=== PATIENT | male | born 1950 | race Caucasian/White ===

== ENCOUNTER 2018-08-19 13:01 | Inpatient (IN) | payer OTHER ==
[2018-08-19 14:46] LABS: Protime INR 1.3
[2018-08-19 14:57] LABS: ALT/SGPT 37 U/L (12-78); AST/SGOT 16 U/L (15-37); Albumin 3.1 g/dL (3.4-5.0); Alkaline Phosphatase 134 U/L (45-117); BUN Blood Urea Nitrogen 24 mg/dL (7-18); Bicarbonate 27 mmol/L (21-32); Bilirubin Direct 0.2 mg/dL (0-0.2); Bilirubin Total 0.7 mg/dL (0.2-1.0); Glucose Level 179 mg/dL (74-106); Lipase 155 U/L (73-393); Magnesium 2.8 mg/dL (1.8-2.4); NT PRO-BNP 72 pg/mL (<125); Protein, Total 8.8 g/dL (6.4-8.2); Sodium Level 134 mmol/L (136-145); Troponin (Emerg Dept Use Only) < 0.02 ng/mL (0.0-0.045)
[2018-08-19 14:58] LABS: Absolute Lymphocytes (CBC) 0.3 K/uL (0.7-4.9); Absolute Monocytes 1.2 K/uL (0.1-1.3); Absolute Neutrophil 27.5 K/uL (1.8-8.0); Basophils % 1.1 % (0-1.3); Hematocrit 52.4 % (39.6-49.0); Monocytes % 4.1 % (3.3-12.3); RBC Red Blood Cell Count 5.49 M/uL (4.33-5.43)
[2018-08-19] MEDS ORDERED: TOBRAMYCIN SULF 0.3% OPTH OINT ONE (15:09)
--- NOTE | 2018-08-19 15:13 | ER ---
Nurse's Notes [facility] Name: James Wei Age: 68 yrs Sex: Male : 1950 Arrival Date: 08/19/2018 Time: 13:06 Bed 6 Private MD: Bal Vargas Diagnosis: Cellulitis and acute lymphangitis of face-abscess right eye;Fever, unspecified;Unspecified kidney failure;Elevated white blood cell count;Dermatitis, unspecified-CONTACT Presentation: 08/19 13:21 Presenting complaint: Presenting complaint: Patient states: Redness and swelling to ss face x 1 week. Pt reports he was seen and treated for a L eye infection at urgent care, but symptoms have gotten much worse now. 13:21 Acuity: KIRILL 2 ss 13:23 Transition of care: patient was not received from another setting of care. Onset of ss symptoms was August 12, 2018. Risk Assessment: Do you want to hurt yourself or someone else? Patient reports no desire to harm self or others. Initial Sepsis Screen: Does the patient meet any 2 criteria? No. Patient's initial sepsis screen is negative. Does the patient have a suspected source of infection? Yes: Skin breakdown/wound. Care prior to arrival: None. 13:23 Method Of Arrival: Ambulatory ss Historical: - Allergies: 13:26 PENICILLINS; ss - Home Meds: 13:26 losartan 100 mg oral tab 1 tab once daily [Active]; metoprolol tartrate 100 mg Oral tab ss 1 tab once daily [Active]; - PMHx: 13:26 Hypertension; Myocardial infarction; ss - PSHx: 13:26 spinal fusion; ss - Immunization history:: Adult Immunizations up to date. - Social history:: Smoking status: Patient/guardian denies using tobacco. - Ebola Screening: : Patient denies exposure to infectious person Patient denies travel to an Ebola-affected area in the 21 days before illness onset. - Family history:: not pertinent. Screenin:36 Abuse screen: Denies threats or abuse. Denies injuries from another. Nutritional sv screening: No deficits noted. Tuberculosis screening: No symptoms or risk factors identified. Fall Risk None identified. Assessment: 13:40 General: Appears in no apparent distress. uncomfortable, well groomed, well developed, sv Behavior is calm, cooperative, appropriate for age. Pain: Complains of pain in face, right ear and left ear Pain currently is 9 out of 10 on a pain scale. Pain began Jonathan Is continuous. Neuro: Level of Consciousness is awake, alert, obeys commands, Oriented to person, place, time, situation, Moves all extremities. Full function Gait is steady, Speech is normal. Cardiovascular: Patient's skin is warm and dry. Respiratory: Airway is patent Respiratory effort is even, unlabored, Respiratory pattern is regular, symmetrical. EENT: Eyes with exudate noted from right eye Lid(s) right eye is swollen shut. Pt stated it started Monday.. Derm: Skin is pink, warm \T\ dry. Musculoskeletal: Range of motion: intact in all extremities, Swelling present in right eye, right cheek, right ear, nose, left ear and left cheek. 14:00 Reassessment: Patient appears in no apparent distress at this time. No changes from sv previously documented assessment. Patient and/or family updated on plan of care and expected duration. Pain level reassessed. Patient is alert, oriented x 3, equal unlabored respirations, skin warm/dry/pink. 14:50 Reassessment: Warm compress placed on the right eye. sv 15:22 Reassessment: Patient appears in no apparent distress at this time. Patient and/or sv family updated on plan of care and expected duration. Pain level reassessed. Patient is alert, oriented x 3, equal unlabored respirations, skin warm/dry/pink. EENT: Lid(s) swelling to the right and left eye. . 15:45 Reassessment: Patient appears in no apparent distress at this time. Patient and/or sv family updated on plan of care and expected duration. Pain level reassessed. Patient is alert, oriented x 3, equal unlabored respirations, skin warm/dry/pink. Dr Yang at bedside, informed that the swelling to the left eye has increased and to the left side of the face. 16:45 Reassessment: Patient appears in no apparent distress at this time. No changes from sv previously documented assessment. Patient and/or family updated on plan of care and expected duration. Pain level reassessed. Patient is alert, oriented x 3, equal unlabored respirations, skin warm/dry/pink. 17:48 Reassessment: Patient appears in no apparent distress at this time. Patient and/or sv family updated on plan of care and expected duration. Pain level reassessed. Patient is alert, oriented x 3, equal unlabored respirations, skin warm/dry/pink. Vital Signs: 13:26 BP 144 / 86; Pulse 96; Resp 17; Temp 99.9(TE); Pulse Ox 99% on R/A; Weight 104.33 kg; ss Height 6 ft. 2 in. (187.96 cm); Pain 9/10; 14:37 BP 134 / 94; Pulse 93; Resp 18; Pulse Ox 99% ; sv 15:00 BP 158 / 99; Pulse 84; Resp 18; Pulse Ox 98% ; sv 16:00 BP 159 / 95; Pulse 89; Resp 18; Pulse Ox 99% on R/A; sv 17:00 BP 175 / 90; Pulse 90; Resp 89; Pulse Ox 100% on R/A; sv 17:48 BP 164 / 99; Pulse 90; Resp 18; Pulse Ox 99% on R/A; sv 13:26 Body Mass Index 29.53 (104.33 kg, 187.96 cm) Visual Acuity: 13:48 Left Eye Visual acuity 20/20, ; With Lenses; Pt unable to open his right eye sv ED Course: 13:06 Patient arrived in ED. mr 13:07 Bal Vargas is Private Physician. mr 13:21 Triage completed. ss 13:26 Arm band placed on right wrist. ss 13:36 Emily Del Rosario, RN is Primary Nurse. sv 13:36 Awaiting ED provider evaluation. sv 13:36 Patient has correct armband on for positive identification. Bed in low position. Call sv light in reach. Door closed. Head of bed elevated. 13:46 Serg Doll MD is Attending Physician. kaleb 14:00 Initial lab(s) drawn, by de, sent to lab. First set of blood cultures drawn by me. sv Inserted saline lock: 20 gauge in left forearm, using aseptic technique. Blood collected. Flushed left forearm with 5 ml normal saline. 14:15 Second set of blood cultures drawn by de. sv 14:38 X-ray(s) taken. sv 14:54 ED physician to see patient. sv 15:08 XRAY Chest (1 view) In Process Unspecified. EDMS 15:11 Kiet Yang DO is Hospitalizing Provider. kaleb 15:36 CT completed. Patient tolerated procedure well. Patient moved back from CT. bq 15:39 Maxillofacial Wo Con In Process Unspecified. EDMS 17:45 No provider procedures requiring assistance completed. Patient admitted, IV remains in sv place. intact. Administered Medications: 15:10 Drug: NS 0.9% 1000 ml Route: IV; Rate: 1 bolus; Site: left forearm; sv 16:40 Follow up: Response: No adverse reaction; IV Status: Completed infusion; IV Intake: sv 1000ml 15:10 Drug: Zofran 4 mg Route: IVP; Site: left forearm; sv 15:30 Follow up: Response: No adverse reaction sv 15:12 Drug: fentaNYL (PF) 25 mcg Route: IVP; Site: left forearm; sv 15:30 Follow up: Response: No adverse reaction sv 15:14 Drug: Clindamycin 900 mg Route: IVPB; Infused Over: 30 mins; Site: left forearm; sv 15:48 Follow up: Response: No adverse reaction; IV Status: Completed infusion; IV Intake: 50mlsv 15:49 Drug: Cefepime 2 grams {Note: given IVP per pharmacy over 3 mins.} Route: IVPB; Rate: sv 200 ml/hr; Infused Over: 30 mins; Site: left forearm; 15:53 Follow up: Response: No adverse reaction; IV Status: Completed infusion; IV Intake: 20mlsv 15:52 Drug: Tobramycin Ointment (0.3 %) 1 application Route: Ophthalmic; Site: right eye; sv 15:53 Drug: vancoMYCIN 1 grams Route: IVPB; Infused Over: 2 hrs; Site: left forearm; sv 17:52 Follow up: Response: No adverse reaction; IV Status: Completed infusion; IV Intake: sv 250ml 16:00 Drug: NS 0.9% 1000 ml Route: IV; Rate: 125 ml/hr; Site: left forearm; sv 17:51 Follow up: Response: No adverse reaction; IV Status: Infusion continued upon admission sv 17:40 Drug: fentaNYL (PF) 25 mcg Route: IVP; Site: left forearm; sv 17:52 Follow up: Response: No adverse reaction sv 17:42 Drug: Pepcid 40 mg Route: IVP; Site: left forearm; sv 17:52 Follow up: Response: No adverse reaction sv 17:45 Drug: Benadryl 25 mg Route: IVP; Site: left forearm; sv 17:52 Follow up: Response: No adverse reaction sv Intake: 15:48 IV: 50ml; Total: 50ml. sv 15:53 IV: 20ml; Total: 70ml. sv 16:40 IV: 1000ml; Total: 1070ml. sv 17:52 IV: 250ml; Total: 1320ml. sv Outcome: 15:12 Decision to Hospitalize by Provider. [facility] 17:45 Admitted to Med/surg accompanied by tech, via wheelchair, room 225, with chart, Report sv called to Mel PEARSON 17:45 Condition: stable 17:45 Instructed on the need for admit. 17:55 Patient left the ED. sv Signatures: Dispatcher [employer] Emily Kim, RN RN Serg Doll MD MD cha Rivera, Mary mr PreciousjeffersonCodi Shelby, RN RN ss Corrections: (The following items were deleted from the chart) 13:25 13:21 Presenting complaint: ss ss 13:50 13:21 Presenting complaint: ss ss 17:48 17:00 BP 175 / ???; Pulse 90bpm; Resp 89bpm; Pulse Ox 100% RA; sv sv
--- NOTE | 2018-08-19 15:13 | EDPHYS ---
Physician Documentation [facility] Name: James Wei Age: 68 yrs Sex: Male : 1950 Arrival Date: 08/19/2018 Time: 13:06 Bed 6 Private MD: Bal Vargas ED Physician Serg Doll HPI: 08/19 14:58 This 68 yrs old Male presents to ER via Ambulatory with complaints of Eye kaleb Swelling, Facial Swelling. 14:58 The patient sustained Unknown. to the right eye. Onset: The symptoms/episode kaleb began/occurred 10 day(s) ago. Duration: the symptoms are continuous. Aggravated by blinking, pressure, rubbing, Alleviated by cold application, covering eye. Associated signs and symptoms: Pertinent positives: chills. Severity of symptoms: At their worst the symptoms were moderate in the emergency department the symptoms are unchanged. The patient has not experienced similar symptoms in the past. Historical: - Allergies: 13:26 PENICILLINS; ss - Home Meds: 13:26 losartan 100 mg oral tab 1 tab once daily [Active]; metoprolol tartrate 100 mg Oral tab ss 1 tab once daily [Active]; - PMHx: 13:26 Hypertension; Myocardial infarction; ss - PSHx: 13:26 spinal fusion; ss - Immunization history:: Adult Immunizations up to date. - Social history:: Smoking status: Patient/guardian denies using tobacco. - Ebola Screening: : Patient denies exposure to infectious person Patient denies travel to an Ebola-affected area in the 21 days before illness onset. - Family history:: not pertinent. ROS: 14:58 ENT: Negative for injury, pain, and discharge, Neck: Negative for injury, pain, and kaleb swelling, Cardiovascular: Negative for chest pain, palpitations, and edema, Respiratory: Negative for shortness of breath, cough, wheezing, and pleuritic chest pain, Abdomen/GI: Negative for abdominal pain, nausea, vomiting, diarrhea, and constipation, Back: Negative for injury and pain, : Negative for injury, bleeding, discharge, and swelling, MS/Extremity: Negative for injury and deformity, Neuro: Negative for headache, weakness, numbness, tingling, and seizure, Psych: Negative for depression, anxiety, suicide ideation, homicidal ideation, and hallucinations, Allergy/Immunology: Negative for hives, rash, and allergies, Endocrine: Negative for neck swelling, polydipsia, polyuria, polyphagia, and marked weight changes, Hematologic/Lymphatic: Negative for swollen nodes, abnormal bleeding, and unusual bruising. 14:58 Constitutional: Positive for chills, fever, malaise. 14:58 Eyes: Positive for pain, redness, swelling, of the right upper eyelid, right outer canthus, outer aspect of conjuctiva of right eye, iris of right eye, inner aspect of conjuctiva of right eye, right inner canthus, right lower eyelid, left upper eyelid and left lower eyelid. 14:58 Skin: Positive for cellulitis, erythema, swelling, of the right eye, right cheek, right ear and left eye. Exam: 14:58 ENT: Nares patent. No nasal discharge, no septal abnormalities noted. Tympanic kaleb membranes are normal and external auditory canals are clear. Oropharynx with no redness, swelling, or masses, exudates, or evidence of obstruction, uvula midline. Mucous membranes moist. Neck: Trachea midline, no thyromegaly or masses palpated, and no cervical lymphadenopathy. Supple, full range of motion without nuchal rigidity, or vertebral point tenderness. No Meningismus. Chest/axilla: Normal chest wall appearance and motion. Nontender with no deformity. No lesions are appreciated. Cardiovascular: Regular rate and rhythm with a normal S1 and S2. No gallops, murmurs, or rubs. Normal PMI, no JVD. No pulse deficits. Respiratory: Lungs have equal breath sounds bilaterally, clear to auscultation and percussion. No rales, rhonchi or wheezes noted. No increased work of breathing, no retractions or nasal flaring. Abdomen/GI: Soft, non-tender, with normal bowel sounds. No distension or tympany. No guarding or rebound. No evidence of tenderness throughout. Back: No spinal tenderness. No costovertebral tenderness. Full range of motion. Male : Normal genitalia with no discharge or lesions. MS/ Extremity: Pulses equal, no cyanosis. Neurovascular intact. Full, normal range of motion. Neuro: Awake and alert, GCS 15, oriented to person, place, time, and situation. Cranial nerves II-XII grossly intact. Motor strength 5/5 in all extremities. Sensory grossly intact. Cerebellar exam normal. Normal gait. Psych: Awake, alert, with orientation to person, place and time. Behavior, mood, and affect are within normal limits. 14:58 Constitutional: The patient appears febrile. 14:58 Head/face: Noted is erythema, that is severe, of the right eye and right cheek, swelling, tenderness. Vital Signs: 13:26 BP 144 / 86; Pulse 96; Resp 17; Temp 99.9(TE); Pulse Ox 99% on R/A; Weight 104.33 kg; ss Height 6 ft. 2 in. (187.96 cm); Pain 9/10; 14:37 BP 134 / 94; Pulse 93; Resp 18; Pulse Ox 99% ; sv 15:00 BP 158 / 99; Pulse 84; Resp 18; Pulse Ox 98% ; sv 16:00 BP 159 / 95; Pulse 89; Resp 18; Pulse Ox 99% on R/A; sv 17:00 BP 175 / 90; Pulse 90; Resp 89; Pulse Ox 100% on R/A; sv 17:48 BP 164 / 99; Pulse 90; Resp 18; Pulse Ox 99% on R/A; sv 13:26 Body Mass Index 29.53 (104.33 kg, 187.96 cm) ss Visual Acuity: 13:48 Left Eye Visual acuity 20/20, ; With Lenses; Pt unable to open his right eye sv MDM: 13:46 Patient medically screened. [facility] 14:58 Data reviewed: vital signs, nurses notes, lab test result(s), EKG, radiologic studies, [facility] CT scan, plain films. 08/19 13:49 Order name: Basic Metabolic Panel; Complete Time: 14:58 [facility] 08/19 13:49 Order name: CBC with Diff; Complete Time: 17:17 [facility] 08/19 13:49 Order name: LFT's; Complete Time: 14:58 [facility] 08/19 13:49 Order name: Magnesium; Complete Time: 14:58 [facility] 08/19 13:49 Order name: NT PRO-BNP; Complete Time: 14:58 [facility] 08/19 13:49 Order name: PT-INR; Complete Time: 14:58 [facility] 08/19 13:49 Order name: Troponin (emerg Dept Use Only); Complete Time: 14:58 [facility] 08/19 13:49 Order name: XRAY Chest (1 view); Complete Time: 15:36 [facility] 08/19 13:49 Order name: Blood Culture Adult (2) [facility] 08/19 13:49 Order name: Procalcitonin; Complete Time: 15:56 [facility] 08/19 13:49 Order name: Lipase; Complete Time: 14:58 [facility] 08/19 13:49 Order name: Urine Culture [facility] 08/19 15:05 Order name: Manual Differential; Complete Time: 17:17 EDMS 08/19 16:35 Order name: Wound Culture 08/19 13:49 Order name: EKG; Complete Time: 13:50 [facility] 08/19 13:49 Order name: EKG - Nurse/Tech; Complete Time: 14:38 [facility] 08/19 15:15 Order name: Maxillofacial Wo Con; Complete Time: 15:55 EDMS 08/19 15:57 Interpretation: Abnormal. [facility] 08/19 13:49 Order name: IV Saline Lock; Complete Time: 14:38 [facility] 08/19 13:49 Order name: Labs collected and sent; Complete Time: 14:38 [facility] 08/19 13:49 Order name: O2 Per Protocol; Complete Time: 13:55 [facility] 08/19 13:49 Order name: O2 Sat Monitoring; Complete Time: 13:55 [facility] 08/19 14:58 Order name: Wound dressing; Complete Time: 15:22 kaleb Administered Medications: 15:10 Drug: NS 0.9% 1000 ml Route: IV; Rate: 1 bolus; Site: left forearm; sv 16:40 Follow up: Response: No adverse reaction; IV Status: Completed infusion; IV Intake: sv 1000ml 15:10 Drug: Zofran 4 mg Route: IVP; Site: left forearm; sv 15:30 Follow up: Response: No adverse reaction sv 15:12 Drug: fentaNYL (PF) 25 mcg Route: IVP; Site: left forearm; sv 15:30 Follow up: Response: No adverse reaction sv 15:14 Drug: Clindamycin 900 mg Route: IVPB; Infused Over: 30 mins; Site: left forearm; sv 15:48 Follow up: Response: No adverse reaction; IV Status: Completed infusion; IV Intake: 50mlsv 15:49 Drug: Cefepime 2 grams {Note: given IVP per pharmacy over 3 mins.} Route: IVPB; Rate: sv 200 ml/hr; Infused Over: 30 mins; Site: left forearm; 15:53 Follow up: Response: No adverse reaction; IV Status: Completed infusion; IV Intake: 20mlsv 15:52 Drug: Tobramycin Ointment (0.3 %) 1 application Route: Ophthalmic; Site: right eye; sv 15:53 Drug: vancoMYCIN 1 grams Route: IVPB; Infused Over: 2 hrs; Site: left forearm; sv 17:52 Follow up: Response: No adverse reaction; IV Status: Completed infusion; IV Intake: sv 250ml 16:00 Drug: NS 0.9% 1000 ml Route: IV; Rate: 125 ml/hr; Site: left forearm; sv 17:51 Follow up: Response: No adverse reaction; IV Status: Infusion continued upon admission sv 17:40 Drug: fentaNYL (PF) 25 mcg Route: IVP; Site: left forearm; sv 17:52 Follow up: Response: No adverse reaction sv 17:42 Drug: Pepcid 40 mg Route: IVP; Site: left forearm; sv 17:52 Follow up: Response: No adverse reaction sv 17:45 Drug: Benadryl 25 mg Route: IVP; Site: left forearm; sv 17:52 Follow up: Response: No adverse reaction sv Disposition: 08/19/18 15:12 Hospitalization ordered by Kiet Yang for Inpatient Admission. Preliminary diagnosis are Cellulitis and acute lymphangitis of face - abscess right eye, Fever, unspecified, Unspecified kidney failure, Elevated white blood cell count, Dermatitis, unspecified - CONTACT. - Bed requested for Telemetry/MedSurg (Inpatient). - Status is Inpatient Admission. sv - Condition is Serious. - Problem is new. - Symptoms have improved. UTI on Admission? No Signatures: Dispatcher [employer] Emily Kim RN RN sv Anderson, Corey, MD MD cha Smirch, Shelby, RN RN Kaela Valencia RN RN df Corrections: (The following items were deleted from the chart) 15:14 15:12 Hospitalization Ordered by Kiet Yang DO for Inpatient Admission. Preliminary [facility] diagnosis is Cellulitis and acute lymphangitis of face - abscess right eye; Fever, unspecified. Bed requested for Telemetry/MedSurg (Inpatient). Status is Inpatient Admission. Condition is Serious. Problem is new. Symptoms have improved. UTI on Admission? No. kaleb 15:15 15:04 Maxillofacial W/Cont+CT.RAD.BRZ ordered. EDNV EDMS 17:05 15:14 08/19/2018 15:12 Hospitalization Ordered by Kiet Yang DO for Inpatient df Admission. Preliminary diagnosis is Cellulitis and acute lymphangitis of face - abscess right eye; Fever, unspecified; Unspecified kidney failure; Elevated white blood cell count. Bed requested for Telemetry/MedSurg (Inpatient). Status is Inpatient Admission. Condition is Serious. Problem is new. Symptoms have improved. UTI on Admission? No. kaleb 17:26 17:05 08/19/2018 15:12 Hospitalization Ordered by Kiet Yang DO for Inpatient kaleb Admission. Preliminary diagnosis is Cellulitis and acute lymphangitis of face - abscess right eye; Fever, unspecified; Unspecified kidney failure; Elevated white blood cell count. Bed requested for Telemetry/MedSurg (Inpatient). Status is Inpatient Admission. Condition is Serious. Problem is new. Symptoms have improved. UTI on Admission? No. df 17:55 17:26 08/19/2018 15:12 Hospitalization Ordered by Kiet Yang DO for Inpatient sv Admission. Preliminary diagnosis is Cellulitis and acute lymphangitis of face - abscess right eye; Fever, unspecified; Unspecified kidney failure; Elevated white blood cell count; Dermatitis, unspecified - CONTACT. Bed requested for Telemetry/MedSurg (Inpatient). Status is Inpatient Admission. Condition is Serious. Problem is new. Symptoms have improved. UTI on Admission? No. kaleb
[2018-08-19] MEDS ORDERED: ONDANSETRON 4 MG/2 ML VIAL ONE (15:23)
[2018-08-19] MEDS ORDERED: CLINDAMYCIN 900MG/D5W 900 MG/50 ML IVPB IV ONE (15:23)
[2018-08-19] MEDS ORDERED: FENTANYL CITR 100 MCG/2 ML ONE ×2 (15:23→17:47)
[2018-08-19] MEDS ORDERED: NA CHLORIDE 0.9% 1,000 ML ONE (15:23)
--- NOTE | 2018-08-19 15:27 | RAD REPORT ---
EXAM DESCRIPTION: RAD - Chest Single View - 08/19/2018 3:07 pm CLINICAL HISTORY: COUGH Chest pain. COMPARISON: No comparisons FINDINGS: Portable technique limits examination quality. The lungs are grossly clear. The heart is upper limit of normal in size. No displaced fractures. IMPRESSION: No acute intrathoracic process suspected.
--- NOTE | 2018-08-19 15:49 | RAD REPORT ---
EXAM DESCRIPTION: CT - CTF CLINICAL HISTORY: PAIN COMPARISON: No comparisons TECHNIQUE: Axial 2 mm thick images of the face were obtained with sagittal and coronal reconstructio n images. All CT scans are performed using dose optimization technique as appropriate and may include automated exposure control or mA/KV adjustment according to patient size. FINDINGS: No acute facial bone fracture is seen.The mandible is intact. Significant subcutaneous of soft tissue swelling stranding is present along the anterior forehead ext ending into both preseptal regions, greater on the right. Mild right orbital proptosis noted. Fat str anding is seen on the right extending into the retrobulbar fat suggesting developing right-sided orbi mikey cellulitis.No vitreous abnormality seen.The paranasal sinuses and mastoids are clear. Several prominent lymph nodes are seen in the left bilaterally. IMPRESSION: Significant preseptal soft tissue swelling is present bilaterally, greater on the right. There is evidence of extension of the inflammation into the retro-bulbar fat on the right with mild r ight-sided proptosis, most compatible with developing right-sided orbital cellulitis.
[2018-08-19] MEDS ORDERED: CEFEPIME/SWI 1gm 10 ML IVP ONE (16:00)
[2018-08-19] MEDS ORDERED: CEFEPIME/SWI 2gm 2 GM/20 ML SYR IVP ONE (16:00)
[2018-08-19] MEDS ORDERED: VANCOMYCIN/NS 1 gm 1 GM/250 ML BAG IV ONE (16:00)
[2018-08-19 16:08] LABS: Blood Morphology Comment NOT SEEN (NOT SEEN); Platelet Estimate ADEQ
--- NOTE | 2018-08-19 16:47 | P.HP ---
Certification for Inpatient Patient admitted to: Inpatient With expected LOS: >2 Midnights Patient will require the following post-hospital care: None Practitioner: I am a practitioner with admitting privileges, knowledge of patient current condition, hospital course, and medical plan of care. Services: Services provided to patient in accordance with Admission requirements found in Title 42 Section 412.3 of the Code of Federal Regulations Patient History Date of Service: 08/19/18 Primary Care Provider: Dr. Vargas Reason for admission: Right facial orbital swelling History of Present Illness: 68-year-old male presented to emergency room with right orbital facial swelling. About 10 days ago patient was exposed to some plants that caused erythema and swelling to the right eye. He went to urgent care and got steroids. This improved. Then it started to develop with erythema to the right side. Patient saw his PCP. He was given another shot of steroids. His condition has not improved. Erythema, swelling, exudate noted to the right orbital region. Erythema also noted to the left side as well. Patient came to the ER for further evaluation. In the ER patient evaluated. White count 29.4, hemoglobin 17. Sodium 134, potassium 4.0. BUN of 24 on, creatinine 1.42 with a GFR 50. Glucose 179. Chest x-ray unremarkable. CT orbital region showed significant preseptal soft tissue swelling bilateral right greater than left. Evidence of extension of inflammation in to the retro bulbar fat on the right with mild right sided proptosis. This was compatible with right-sided orbital cellulitis. No abscess was identified. Patient limited for treatment. Case discussed with Ophthalmology and ENT. When I saw the patient ER, erythema and swelling noted. Patient with history of hypertension. Patient reports no evidence of shortness of breath. He does report mild fever and chills. Warmth to the right facial region noted. Allergies Penicillins Allergy (Intermediate, Verified 09/13/12 03:10) Hives Home medications list reviewed: Yes - Past Medical/Surgical History Diabetic: No -: Hypertension -: Multiple orthopedic surgeries to the back Psychosocial/ Personal History: Patient is . He has 2 children. He is retired - Family History Family History: Reviewed- Non-Contributory - Social History Smoking Status: Never smoker Alcohol use: Yes CD- Drugs: No Caffeine use: Yes Place of Residence: Home Review of Systems General: Fever, Chills, As per HPI Eyes: As per HPI ENT: As per HPI Respiratory: Unremarkable Cardiovascular: Unremarkable Gastrointestinal: Unremarkable Genitourinary: Unremarkable Musculoskeletal: Unremarkable Integumentary: Unremarkable Neurological: Unremarkable Lymphatics: Unremarkable Physical Examination - Physical Exam General: Alert, In no apparent distress, Oriented x3, Cooperative HEENT: Other (Erythema, swelling to the right orbital area. Right eye lid close with exudate noted. Erythema noted to the ethmoid and frontal region. Erythema and swelling noted to the left orbital region as well. Right greater than left. Area is warm to touch.) Neck: Supple Respiratory: Clear to auscultation bilaterally, Normal air movement Cardiovascular: Normal pulses, Regular rate/rhythm Gastrointestinal: Normal bowel sounds, Soft and benign, Non-distended, No tenderness, No masses, No rebound, No guarding Musculoskeletal: No erythema, No tenderness, No warmth Integumentary: Other (As above) Neurological: Normal speech, Normal strength at 5/5 x4 extr, Normal tone, Normal affect - Studies Laboratory Data (last 24 hrs) 08/19/18 14:00: PT 15.2 H, INR 1.30 08/19/18 14:00: WBC 29.4 H*, Hgb 17.2, Hct 52.4 H, Plt Count 309 08/19/18 14:00: Sodium 134 L, Potassium 4.0, BUN 24 H, Creatinine 1.42 H, Glucose 179 H, Magnesium 2.8 H, Total Bilirubin 0.7, AST 16, ALT 37, Alkaline Phosphatase 134 H, Lipase 155 Assessment and Plan - Plan Impression: Right facial orbital cellulitis with dermatitis Hypertension Alcohol use Plan: Right facial orbital cellulitis with dermatitis: Patient will be admitted for treatment. Case discussed at length with ENT and Ophthalmology. Ophthalmology will evaluate patient later tonight. IV antibiotics initiated. Patient on IV vancomycin, cefepime and clindamycin. Will continue antibiotic therapy. Cultures obtained. Patient will need to be reassessed with CT scan within the next 2-3 days. Will need to rule out abscess. No abscess identified at this time. Patient may require debridement. Await further recommendations from Ophthalmology. I will turn the service over to Dr. Trivedi tomorrow. I will go over the plan of care with her. Hypertension: Continue home medication. Alcohol use: Lifestyle modification education and cessation addressed in detail. Discharge Plan: Home Plan to discharge in: Greater than 2 days - Advance Directives Does patient have a Living Will: No Does patient have a Durable POA for Healthcare: No - Code Status/Comfort Care Code Status Assessed: Yes (Patient full code.) Time Spent Managing Pts Care (In Minutes): 55
[2018-08-19] MEDS ORDERED: FAMOTIDINE 20 MG/2 ML VIAL IV ONE ×2 (17:47→17:48)
[2018-08-19] MEDS ORDERED: DIPHENHYDRAMINE 50 MG/ML VIAL ONE (17:47)
[2018-08-19] MEDS ORDERED: ONDANSETRON 4 MG/2 ML VIAL IV PRN (18:27)
[2018-08-19] MEDS ORDERED: CETIRIZINE HCL 5 MG TABLET PO PRN (18:27)
[2018-08-19] MEDS ORDERED: ACETAMINOPHEN 500 MG TAB PO PRN (18:27)
[2018-08-19] MEDS ORDERED: VANCOMYCIN 1 GM in NA CHLORIDE 0.9% 500 ML IVPB ONE (21:00)
[2018-08-19 21:17] LABS: Urine Appearance CLEAR; Urine Bilirubin NEGATIVE (NEG); Urine Blood NEGATIVE (NEG); Urine Color YELLOW; Urine Glucose NEGATIVE (NEG); Urine Protein 1+ (NEG); Urine Specific Gravity 1.025 (1.005-1.030); Urine Urobilinogen 0.2 mg/dL (0.2-1.0)
[2018-08-19] MEDS: NA CHLORIDE 0.9% 1,000 ML IV SCH (21:35)
[2018-08-19 21:37] LABS: Urine Microscopic Reflex ORDER UMIC
[2018-08-19] MEDS: LOSARTAN POTASSIUM 50 MG TABLET PO SCH (21:37)
[2018-08-19 21:38] LABS: Urine Amorphous Sediment 1+ /HPF (NONE SEEN); Urine Bacteria <20 /HPF (NONE SEEN); Urine Culture Reflex Order NOT NEEDED; Urine Mucus 1+ /HPF (NONE SEEN); Urine RBC <5 /HPF (NONE SEEN)
[2018-08-19] MEDS: ENOXAPARIN 40 MG/0.4 ML SQ SCH (21:38)
--- NOTE | 2018-08-19 21:38 | P.CNS ---
Date of Consult: 08/19/[address] Yang and CT images reviewed. Patient was not seen in person by me. There is no evidence of sinus disease as an underlying cause or contributing factor to this orbital/preseptal cellulitis. Based on CT images and inability to have IV contrast, radiographic evidence of abscess is not seen. I strongly recommend ophtho in management - not much for ENT at this time. Call if I can be of further help.
[2018-08-19] MEDS: FAMOTIDINE 20 MG TAB PO SCH (21:39)
[2018-08-19] MEDS: TRAMADOL HCL 50 MG TAB PO PRN (23:11)
[2018-08-19] MEDS: CLINDAMYCIN INJ 300 MG in NA CHLORIDE 0.9% 50 ML IV SCH ×2 (23:37→23:56)
[2018-08-20] MEDS: NA CHLORIDE 0.9% 1,000 ML IV SCH ×3 (03:13→17:29)
[2018-08-20] MEDS: HYDROCODONE/APAP 7.5/325 MG TAB PO PRN ×3 (03:20→17:27)
[2018-08-20] MEDS: CLINDAMYCIN INJ 300 MG in NA CHLORIDE 0.9% 50 ML IV SCH ×3 (05:53→23:10)
[2018-08-20] MEDS: METOPROLOL XL 50 MG TAB PO SCH (06:00)
[2018-08-20 06:09] LABS: Absolute Lymphocytes (CBC) 0.6 K/uL (0.7-4.9); Absolute Monocytes 1.4 K/uL (0.1-1.3); Absolute Neutrophil 18.5 K/uL (1.8-8.0); Basophils % 0.2 % (0-1.3); Hematocrit 42.2 % (39.6-49.0); Lymphocytes % 2.7 % (15.3-44.8); MPV 7.8 fL (7.6-11.3); Monocytes % 6.9 % (3.3-12.3); RBC Red Blood Cell Count 4.46 M/uL (4.33-5.43)
[2018-08-20 06:20] LABS: BUN Blood Urea Nitrogen 17 mg/dL (7-18); Bicarbonate 26 mmol/L (21-32); Glucose Level 106 mg/dL (74-106); Magnesium 2.4 mg/dL (1.8-2.4); Potassium 3.9 mmol/L (3.5-5.1); Sodium Level 135 mmol/L (136-145)
--- NOTE | 2018-08-20 08:51 | EKG ---
Test Date: 2018-08-19 Test Time: 14:30:52 Fur Remodeler: SWG MEASUREMENT RESULTS: Intervals: Rate: 88 HI: 156 QRSD: 108 QT: 380 QTc: 459 [place]: P: 35 HI: 156 QRS: 17 T: 5 INTERPRETIVE STATEMENTS: Normal sinus rhythm Nonspecific T wave abnormality Abnormal ECG Compared to ECG 05/12/2000 07:32:00 T-wave abnormality now present Sinus bradycardia no longer present Electronically Signed On 08-20-18 08:50:29 CDT by Bulmaro Patel
[2018-08-20] MEDS ORDERED: CEFEPIME 1 GM/VIAL IV SCH (09:00)
[2018-08-20] MEDS: ENOXAPARIN 40 MG/0.4 ML SQ SCH (09:28)
[2018-08-20] MEDS: CEFEPIME/SWI 1gm 10 ML IVP SCH (09:29)
[2018-08-20] MEDS: LOSARTAN POTASSIUM 50 MG TABLET PO SCH ×2 (09:29→20:26)
[2018-08-20] MEDS: FAMOTIDINE 20 MG TAB PO SCH ×2 (09:29→20:26)
--- NOTE | 2018-08-20 11:05 | P.PN ---
Subjective Primary Care Provider: Dr. Vargas Chief Complaint: Right facial orbital swelling Subjective: No new changes Patient seen and examined at bedside. No family at bedside. Chart reviewed and case discussed with nursing staff. No changes noted from yesterday. Patient still complaining of pain to the eye and unable to open eyes. He is still pending ophthalmology evaluation Review of Systems 10-point ROS is otherwise unremarkable Physical Examination - Vital Signs Temperature: 98.6 F Blood Pressure: 148/80 Pulse: 98 Respirations: 18 Pulse Ox (%): 99 - Physical Exam General: Alert, Oriented x3, Mild distress, Moderate distress HEENT: Other (Right eye with swelling, orbital erythema, exudative discharge. Erythema also noted on left eye lid, right worse than left) Neck: Supple, JVD not distended Respiratory: Clear to auscultation bilaterally, Normal air movement Cardiovascular: Regular rate/rhythm, Normal S1 S2 Gastrointestinal: Normal bowel sounds, No tenderness Musculoskeletal: No tenderness Neurological: Normal speech, Normal tone, Normal affect Lymphatics: No axilla or inguinal lymphadenopathy - Studies Laboratory Data (last 24 hrs) 08/19/18 14:00: PT 15.2 H, INR 1.30 08/19/18 14:00: WBC 29.4 H*, Hgb 17.2, Hct 52.4 H, Plt Count 309 08/19/18 14:00: Sodium 134 L, Potassium 4.0, BUN 24 H, Creatinine 1.42 H, Glucose 179 H, Magnesium 2.8 H, Total Bilirubin 0.7, AST 16, ALT 37, Alkaline Phosphatase 134 H, Lipase 155 Assessment And Plan - Plan Right facial orbital cellulitis with dermatitis Hypertension Alcohol use Right facial orbital cellulitis with dermatitis: ENT was consulted, recommendations appreciated. no further ENT interventions. Ophthalmology consulted, pending evaluation. Continue IV antibiotics with vancomycin, cefepime and clindamycin. Cultures obtained, pending Repeat CT scan within the next 2 days, or earlier if worsening symptoms to evaluate/rule out abscess formation. Hypertension Continue home medication. Alcohol use Counseled on alcohol cessation DVT prophylaxis: Lovenox GI prophylaxis: None Diet: NPO Disposition: Pending ophthalmology evaluation and symptomatic improvement
[2018-08-20] MEDS: TRAMADOL HCL 50 MG TAB PO PRN (12:54)
[2018-08-20] MEDS: VANCOMYCIN 2 GM in NA CHLORIDE 0.9% 500 ML IVPB SCH (20:26)
[2018-08-21] MEDS: NA CHLORIDE 0.9% 1,000 ML IV SCH ×3 (00:28→20:34)
[2018-08-21] MEDS: HYDROCODONE/APAP 7.5/325 MG TAB PO PRN ×4 (00:37→21:51)
[2018-08-21] MEDS: TRAMADOL HCL 50 MG TAB PO PRN ×2 (04:21→19:03)
[2018-08-21] MEDS: CLINDAMYCIN INJ 300 MG in NA CHLORIDE 0.9% 50 ML IV SCH ×3 (05:43→17:21)
[2018-08-21] MEDS: METOPROLOL XL 50 MG TAB PO SCH (05:43)
[2018-08-21 07:06] LABS: Absolute Lymphocytes (CBC) 0.7 K/uL (0.7-4.9); Absolute Monocytes 1.2 K/uL (0.1-1.3); Absolute Neutrophil 13.5 K/uL (1.8-8.0); Basophils % 0.1 % (0-1.3); Eosinophils % 0.1 % (0-4.4); Hematocrit 43.4 % (39.6-49.0); Lymphocytes % 4.2 % (15.3-44.8); MPV 8.1 fL (7.6-11.3); Monocytes % 7.8 % (3.3-12.3); RBC Red Blood Cell Count 4.61 M/uL (4.33-5.43)
[2018-08-21 07:49] LABS: BUN Blood Urea Nitrogen 15 mg/dL (7-18); Bicarbonate 28 mmol/L (21-32); Glucose Level 85 mg/dL (74-106); Magnesium 2.4 mg/dL (1.8-2.4); Potassium 3.7 mmol/L (3.5-5.1); Sodium Level 137 mmol/L (136-145)
[2018-08-21] MEDS: CEFEPIME/SWI 1gm 10 ML IVP SCH (08:19)
[2018-08-21] MEDS: ENOXAPARIN 40 MG/0.4 ML SQ SCH (08:19)
[2018-08-21] MEDS: FAMOTIDINE 20 MG TAB PO SCH ×2 (08:20→20:37)
[2018-08-21] MEDS: LOSARTAN POTASSIUM 50 MG TABLET PO SCH ×2 (08:20→20:33)
--- NOTE | 2018-08-21 11:40 | P.PN ---
Subjective Date of Service: 08/21/18 Primary Care Provider: Dr. Vargas Chief Complaint: Right facial orbital swelling Subjective: Improving Patient seen and examined at bedside. No family at bedside. Chart reviewed and case discussed with nursing staff. Slightly improved this morning. Still unable to open his eyes. Patient still complaining of pain to the eye and unable to open eyes. Review of Systems 10-point ROS is otherwise unremarkable Physical Examination - Vital Signs Temperature: 97.6 F Blood Pressure: 178/90 Pulse: 67 Respirations: 17 Pulse Ox (%): 94 - Physical Exam General: Alert, In no apparent distress HEENT: Other (Right eye with swelling, orbital erythema, exudative discharge. Erythema also noted on left eye lid, right worse than left) Neck: Supple, JVD not distended Respiratory: Clear to auscultation bilaterally, Normal air movement Cardiovascular: Regular rate/rhythm, Normal S1 S2 Gastrointestinal: Normal bowel sounds, No tenderness Musculoskeletal: No tenderness Integumentary: No rashes Neurological: Normal speech, Normal tone, Normal affect Lymphatics: No axilla or inguinal lymphadenopathy Assessment And Plan - Plan Right facial orbital cellulitis with dermatitis: ENT was consulted, recommendations appreciated. no further ENT interventions. Ophthalmology consulted, recommendations appreciated. Continue IV antibiotics with vancomycin, cefepime and clindamycin. Cellulitic area around the eye marked with a marker. We will continue to monitor Cultures obtained, pending. Blood cultures negative for [address] scan within the next 2 days, or earlier if worsening symptoms to evaluate/rule out abscess formation. Hypertension Continue home medication. Alcohol use Counseled on alcohol cessation DVT prophylaxis: Lovenox GI prophylaxis: None Diet: Heart healthy Disposition: Pending symptomatic improvement
[2018-08-21] MEDS: VANCOMYCIN 2 GM in NA CHLORIDE 0.9% 500 ML IVPB SCH (20:35)
[2018-08-22] MEDS: CLINDAMYCIN INJ 300 MG in NA CHLORIDE 0.9% 50 ML IV SCH ×4 (00:17→17:34)
[2018-08-22] MEDS: HYDROCODONE/APAP 7.5/325 MG TAB PO PRN ×3 (02:57→16:12)
[2018-08-22] MEDS: METOPROLOL XL 50 MG TAB PO SCH (05:15)
[2018-08-22] MEDS: NA CHLORIDE 0.9% 1,000 ML IV SCH ×2 (05:19→16:20)
[2018-08-22 06:34] LABS: Absolute Lymphocytes (CBC) 0.8 K/uL (0.7-4.9); Absolute Neutrophil 9.9 K/uL (1.8-8.0); Basophils % 0.2 % (0-1.3); Eosinophils % 0.4 % (0-4.4); Hematocrit 44.6 % (39.6-49.0); Lymphocytes % 7.1 % (15.3-44.8); MPV 7.8 fL (7.6-11.3); Monocytes % 8.7 % (3.3-12.3); RBC Red Blood Cell Count 4.75 M/uL (4.33-5.43)
[2018-08-22 06:48] LABS: BUN Blood Urea Nitrogen 12 mg/dL (7-18); Bicarbonate 29 mmol/L (21-32); Glucose Level 91 mg/dL (74-106); Magnesium 2.5 mg/dL (1.8-2.4); Potassium 4.2 mmol/L (3.5-5.1); Sodium Level 138 mmol/L (136-145)
[2018-08-22] MEDS: TRAMADOL HCL 50 MG TAB PO PRN ×3 (07:37→19:04)
[2018-08-22 08:39] VITALS: O2SAT 97
[2018-08-22] MEDS ORDERED: VANCOMYCIN 1.75 GM in NA CHLORIDE 0.9% 500 ML IVPB SCH (09:00)
[2018-08-22] MEDS: LOSARTAN POTASSIUM 50 MG TABLET PO SCH ×2 (10:11→19:04)
[2018-08-22] MEDS: CEFEPIME/SWI 1gm 10 ML IVP SCH (10:11)
[2018-08-22] MEDS: ENOXAPARIN 40 MG/0.4 ML SQ SCH (10:11)
[2018-08-22] MEDS: FAMOTIDINE 20 MG TAB PO SCH (10:11)
--- NOTE | 2018-08-22 11:32 | RAD REPORT ---
EXAM DESCRIPTION: CTMaxillofacial Wo Con3 10:44 am CLINICAL HISTORY: Orbital cellulitis/facial pain COMPARISON: August 19 2018 cat scan TECHNIQUE: Computed axial tomography of the sinuses were obtained with coronal and sagittal reconstr uction. All CT scans are performed using dose optimization technique as appropriate and may include automated exposure control or mA/KV adjustment according to patient size. FINDINGS: Marked right preseptal swelling. Soft tissue measuring 21 x 9 millimeters lies posteromedi al to the right globe. Right proptosis. Right superior rectus muscle is thickened. Moderate left preseptal swelling. Left periorbital fat is clear. Fluid within the sinuses is not noted. IMPRESSION: 21 x 9 millimeter soft tissue structure posteromedial to the right globe is suspicious f or an abscess. Exam is limited as IV contrast was not administered. Further evaluation with an enhanc ed MRI recommended Dr Trivedi notified
[2018-08-22] MEDS ORDERED: ERYTHROMYCIN 3.5GM OPTH OINT EACH EYE SCH (14:15)
--- NOTE | 2018-08-22 14:57 | P.PN ---
Subjective Date of Service: 08/22/18 Primary Care Provider: Dr. Vargas Chief Complaint: Right facial orbital swelling Subjective: No new changes Patient seen and examined at bedside. No family at bedside. Chart reviewed and case discussed with nursing staff. Slightly improved this morning. Still unable to open his eyes. Patient still complaining of pain to the eye and unable to open eyes. Review of Systems 10-point ROS is otherwise unremarkable Physical Examination - Vital Signs Temperature: 97.5 F Blood Pressure: 172/102 Pulse: 56 Respirations: 18 Pulse Ox (%): 94 - Physical Exam General: Alert, In no apparent distress HEENT: Other Neck: Supple, JVD not distended (Right eye with swelling, orbital erythema, exudative discharge. Erythema also noted on left eye lid, right worse than left ) Respiratory: Clear to auscultation bilaterally, Normal air movement Cardiovascular: Regular rate/rhythm, Normal S1 S2 Gastrointestinal: Normal bowel sounds, No tenderness Musculoskeletal: No tenderness Integumentary: No rashes Neurological: Normal speech, Normal tone, Normal affect Lymphatics: No axilla or inguinal lymphadenopathy Assessment And Plan - Plan Right facial orbital cellulitis with dermatitis: ENT was consulted, recommendations appreciated. no further ENT interventions. Ophthalmology consulted, recommendations appreciated. Continue IV antibiotics with vancomycin, cefepime and clindamycin. Cellulitic area around the eye marked with a marker. We will continue to monitor Cultures obtained, pending. Blood cultures negative for [address] scan with 21 x 9 mm posteromedial abscess. Discussed with Dr. Dalton Ruiz - stated that unlikely that they would be able to so anything surgically here due to the location. Will initiate transfer for patient. Hypertension Continue home medication. Alcohol use Counseled on alcohol cessation DVT prophylaxis: Lovenox GI prophylaxis: None Diet: Heart healthy Disposition: Pending transfer to [facility] for oculoplastic surgeon. Discharge Plan: Transfer (To [facility])
[2018-08-22] MEDS ORDERED: HYDRALAZINE HCL 20 MG/ML VIAL IV ONE (16:45)
[2018-08-22 17:21] VITALS: BP 204/108; TEMP 98.5
[2018-08-22 20:05] VITALS: BMI 28.9
[2018-08-22] MEDS ORDERED: ERYTHROMYCIN 1 APPL/1 GM TUBE EACH EYE SCH (21:00)
== END 2018-08-22 19:00 | disposition short-term general hospital (02) | DRG 603 ==
LOC: ER 13:01 → ERHOLD 16:34 → 2ND 17:43
PROVIDERS: ADMIT Family Medicine; ATTEND Family Medicine
DX: L03.213 Periorbital cellulitis (principal); N17.9 Acute kidney failure, unspecified; I10 Essential (primary) hypertension; Z72.89 Other problems related to lifestyle
CPT/HCPCS: 36415; 70486; 71045; 80048; 80076; 80202; 81003; 81015; 83690; 83735; 83880; 84145; 84484; 85025; 85610; 87040; 87070; 87077; 87086; 87088; 87186; 87205; 93005; 96365; 96366; 96367; 96375; 99285; J0360; J0692; J1650; J2405; J3010; J3370; J7030

== ENCOUNTER 2020-05-02 22:50 | Emergency (ER) | payer OTHER, SELFPAY ==
--- OUTSIDE RECORDS SUMMARY | 2020-05-02 22:52 | XMS REPORT | Clinical Summary ---
:1950 Author Organization [facility] Address [address] [place] [address] Care Team Providers Name Role Phone Asked, Pcp Primary Care Provider Unavailable Allergies Active Allergy Reactions Severity Noted Date Comments Penicillins Rash Low 11/27/2018 Medications Medication Sig Dispensed Refills Start Date End Date Status metoprolol tartrate Take 50 mg by 0 Active (LOPRESSOR) 50 mg tablet mouth 2 (two) times a day. losartan (COZAAR) 100 MG Take 100 mg by 0 Active tablet mouth daily. celecoxib (CeleBREX) 200 Take 200 mg by 0 Active MG capsule mouth 2 (two) times a day. levocetirizine Take by mouth. 0 Active dihydrochloride (XYZAL ORAL) armodafinil 150 mg tablet Take 150 mg by 0 Active mouth daily. Active Problems No known active problems Surgical History Surgery Date Site/Laterality Comments NECK SURGERY " 5 surgeries" BACK SURGERY "4 back surgerie s" CARPAL TUNNEL RELEASE Left ROTATOR CUFF REPAIR Left EYE SURGERY "[address] Du y" REPAIR, ECTROPION 11/27/2018 Eye/Bilateral Procedure: ++; Surgeon: Jonny Lozano MD; Loc ation: [facility] OR; Service: Ophthal mology; Laterality: Bilateral; DACRYOCYSTORHINOSTOMY 11/27/2018 Eye/N/A Procedure: BILATERAL PROBING/IRRIGATI ON, RIGHT LOWER EYELID ECTROPION REPAIR , RIGHT UPPER EYELID RECESSION, FULL THICKNESS SKIN GRAFT (from left eye), RIGHT UPPER EYELID SCAR REVISION, R IGHT UPPER/LOWER CUL DE SAC SYMPBLEPH JOANN LYSIS, BILATERAL UPPER AND LOWER EYELIDS LESIONS REMOVAL; Surgeo n: Jonny Lozano MD; Location: [facility] OR; Service: Ophthal mology; Laterality: N/A; Medical History Medical History Date Comments Streptococcal bacteremia 2018 eyes Hypertension Sleep apnea just got CPAP, hasnt used yet. Setting 12-20 Joint pain Social History Tobacco Use Types Packs/Day Years Used Date Former Smoker Quit: 1983 Smokeless Tobacco: Never Used Alcohol Use Drinks/Week oz/Week Comments Yes 8 Cans of beer 8.0 daily Sex Assigned at Date Recorded Not on file Last Filed Vital Signs Not on file Plan of Treatment Not on file Results Not on fileafter 05/02/2019 ([facility]) [address] [address] Advance Directives For more information, please contact: [phone] Type Date Recorded Patient Customer Management Specialist Explanati on Advance Directives, Living Will and Medical Power of Mining Engineer
--- OUTSIDE RECORDS SUMMARY | 2020-05-02 22:52 | XMS REPORT | Clinical Summary ---
:1950 Author Organization [facility] Address [address] [place] [address] Care Team Providers Name Role Phone Martínez Vargas Primary Care Provider Allergies Active Allergy Reactions Severity Noted Date Comments Penicillins Rash High 08/22/2018 Medications Medication Sig Dispensed Refills Start Date End Date Status losartan (COZAAR) 100 MG Take 100 mg by 0 Active tablet mouth daily. metoprolol (TOPROL-XL) Take 50 mg by 0 Active 50 MG 24 hr tablet mouth daily. levocetirizine (XYZAL) 5 Take 5 mg by 0 Active MG tablet mouth every evening. [id number] Apply 0.5 inch 3.5 g 0 08/29/2018 Active ethasone (POLYDEX) 3.5 ribbon to each mg/g-10,000 unit/g-0.1 % eye twice daily Oint ophthalmic ointment for two weeks. Active Problems Problem Noted Date Orbital abscess 08/22/2018 Cellulitis of both orbits 08/22/2018 Essential hypertension 08/22/2018 Family History Medical History Relation Name Comments Cancer Other Relation Name Status Comments Other Social History Tobacco Use Types Packs/Day Years Used Date Former Smoker Smokeless Tobacco: Never Used Alcohol Use Drinks/Week oz/Week Comments Yes 42 Cans of beer 42.0 last drink 08/17 Sex Assigned at Date Recorded Not on file Last Filed Vital Signs Not on file Plan of Treatment Health Maintenance Due Date Last Done Comments COLON CANCER SCREENING COLONOSCOPY 1950 PNEUMOCOCCAL 65+ YRS (1 of 1 - [id number]) 2017 MEDICARE ANNUAL WELLNESS (YEAR 2 or FIRST YEAR if no 05/30/2019 IPPE) INFLUENZA VACCINE (#1) 2020 Results Not on fileafter 05/02/2019 Insurance Payer Benefit Plan / Subscriber ID Effective Dates Phone Addre ss Type Group AETNA - AET[employer] MEDICARE [id number] [phone] [address] MEDICARE MGD HMO POS PPO t 2 [id number] [place] [address] Advance Directives For more information, please contact: [phone] Code Status Date Activated Date Inactivated Comments Full Code 08/22/2018 9:43 PM 08/29/2018 7:25 PM This code status was determined by: Patient
--- OUTSIDE RECORDS SUMMARY | 2020-05-02 22:53 | XMS REPORT | Continuity of Care Document ---
:1950 Author Organization [facility] t Address [address] [place] [address] Care Team Providers Name Role Phone Asked, Pcp Primary Care Physician Unavailable JERAD CLEMENTS Attending Clinician Unavailable JERAD CLEMENTS Admitting Clinician Unavailable Problems Condition Condition Condition Status Onset Resolution Last Treating Co mments Source Name Details Category Date Date Treatment Clinician Date Orbital Orbital Disease Active [facility] 00 [place] Cellulitis Cellulitis Disease Active [facility] both of both 08-22 [facility] - orbits orbits 00:00: Medical 00 [place] Essential Essential Disease Active [facility] hypertensi hypertensi 08-22 Maggy kes - on on 00:00: Medical 00 [place] Allergies, Adverse Reactions, Alerts Allergy Allergy Status Severity Reaction(s) Onset Inactive Treating Comm ents Source Name Type Date Date Clinician Penicill Propensi Active Rash [place] [facility] ins ty to 11-27 [facility] adverse 00:00: st reaction 00 s to drug Penicill Propensi Active Rash [facility] - adverse 00:[facility]: Medical reaction 00 Center s Family History Family Member Diagnosis Comments Start Date Stop Date Source Other Cancer [facility] Social History Social Habit Start Date Stop Date Quantity Comments Source History of Current smoker [facility]ist tobacco use Sex Assigned At [facility] Tobacco use and 2018-08-27 2018-08-27 Never used [facility] Maggy kes - exposure 00:00:00 00:00:00 [facility] Alcohol intake 2018-08-27 2018-08-27 Current drinker [facility] - [facility]:00:00 of alcohol [facility] (finding) Alcohol Comment 2018-08-22 2018-08-22 last drink 08/[address] [facility] - [facility] Smoking Status Start Date Stop Date Source Former smoker 2018-08-27 00:00:00 2018-08-27 00:00:[address] [facility] Medications Ordered Filled Start Stop Current Ordering Indication Dosage Frequency Signature Comments Components Source Medication Medication Date Date Medication? Clinician (SIG) Name Name metoprolol Yes 50mg Q.5D Take 50 mg [place] tartrate 7-03 by mouth 2 Metho di (LOPRESSOR) 09:22: (two) st 50 mg 35 times a tablet day. losartan Yes 100mg QD Take 100 [place] (COZAAR) 7-03 mg by [facility]i 100 MG 09:22: mouth st tablet 35 daily. celecoxib Yes 200mg Q.5D Take [address] (CeleBREX) 7-03 mg by [facility]i 200 MG 09:22: mouth 2 st capsule 35 (two) times a day. levocetiriz Yes Take by Ren ston ine 7-03 mouth. [facility]i dihydrochlo 09:22: st ride (XYZAL 35 ORAL) armodafinil Yes 150mg QD Take 150 [place] 150 mg 7-03 mg by [facility] tablet 09:22: mouth st 35 daily. losartan Yes 100mg QD Take [address] (COZAAR) 4-03 mg by [facility] - 100 MG 17:25: mouth Medical tablet 28 daily. Center metoprolol Yes 50mg QD Take [address] (TOPROL-XL) 4-03 by mouth Luke s - 50 MG 24 hr 17:25: daily. Medi [place] tablet 28 Center levocetiriz Yes 5mg QD Take [address] ine (XYZAL) 4-03 by mouth Luke s - 5 MG tablet 17:25: every Medic al 28 evening. [place] neomycin-po Yes Apply 0.[address] lymyxin-dex 4-03 inch [facility] - amethasone 00:00: ribbon to Me dical (POLYDEX) 00 each eye Center 3.5 twice mg/g-10,000 daily for unit/g-0.1 two weeks. % Oint ophthalmic ointment Procedures This patient has no known procedures. Plan of Care Planned Activity Planned Date Details Comments Source Future Scheduled 2020-01-28 INFLUENZA VACCINE (#1) [facility] 00:[facility]00 [code = INFLUENZA Medical Ce nter VACCINE (#1)] Future Scheduled 2019-05-[address] [facility] - Test 00:00:00 WELLNESS (YEAR 2 or Medical Center FIRST YEAR if no IPPE) [code = MEDICARE ANNUAL WELLNESS (YEAR 2 or FIRST YEAR if no IPPE)] Future Scheduled 2017 PNEUMOCOCCAL 65+ [facility] - Test 00:00:00 (1 of 1 - Medical Center [id number] PCV13) [code = PNEUMOCOCCAL 65+ YRS (1 of 1 - [id number] PCV13)] Future Scheduled [address] - Test 00:00:00 malignant neoplasm of Medica l Center colon (procedure) [code = 246648497] Results Test Description Test Time Test Comments Results Result Comments Source AFB CULTURE + SMEAR 2018-10-07 18:35:00 Test Item Value Reference Range Interpretation Comme nts CULTURE (BEAKER) (test code = 1095) No acid-fast bacilli isolated i n 42 days AFB SMEAR (BEAKER) (test code = 994) No acid fast bacilli seen FUNGUS CULTURE + [id number] 18:21:00 Test Item Value Reference Range Interpretation Comments CULTURE (BEAKER) (test No fungus isolated in code = 1095) 28 days FUNGUS SMEAR (BEAKER) No fungi seen (test code = 1406) FUNGUS CULTURE + [id number] 17:34:00 Test Item Value Reference Range Interpretation Comments CULTURE (BEAKER) (test No fungus isolated in code = 1095) 28 days FUNGUS SMEAR (BEAKER) No fungi seen (test code = 1406) TISSUE [id number] 18:13:00Surgical Pathology Report Case: [id number] Authorizing Provider: Jonny Lozano MD Collected: 08/25/2018 7970 Ordering Location: [address] Received: 08/27/2018 0886 Service Pathologist: Kaley Diallo MD Specimen: Eye, Right, Necrotic tissue SUBMITTED "NECROTIC TISSUE, RIGHT EYE", DEBRIDEMENT: - NECROTIC TISSUE WITH MIXED INFLAMMATION - NO FUNGAL ORGANISMS OR ACID FAST BACILLI IDENTIFIED ON SPECIAL STAINS Signing Pathologist Direct Phone Line: [phone] signed by Kaley Diallo MD on 08/31/2018 at 6:13 PMPreliminary result electronically signed by Kaley Diallo MD on 08/28/2018 at 12:44 PMCorrelation with microbiology culture studies is recommended.[id number] cellulitis bilateral Right eye necrotic tissueThe specimen is received in a formalin-filled container and labeled with the patient's information and labeled "right eye necrotic tissue" consists of four fragments of red soft tissue tissue ranging from 0.1 to 0.6 cm, submitted A1. CG/pl Performed.AFB-negative for acid fast bacilliGMS-negative for fungal organismsPAS-negative for fungal organismsControls are adequate.The above special studies were performed in this caseand the interpretation is incorporated in the diagnostic report above:The tests were performed in [facility], Pathology Laboratory. It has not been cleared or approved by the U.S. Food and Drug Administration. The FDA has determined that such clearance or approval is not necessary. The test is used for clinical purposes. It should not be regarded as investigational or for research. This laboratory is certified under the Clinical Laboratory Improvement Amendments of 1988 (CLIA-88) as qualified to perform high complexity clinical laboratory testing.SURGICALLY OBTAINED CULTURE + GRAM [id number] 10:30:00 Test Item Value Reference Range Interpretation Comments CULTURE (BEAKER) PSEUDOMONAS A From Broth Only (test code = 1095) AERUGINOSA Pseudomon as aeruginosa Amikacin (test code Susceptible 0-16 S = 1) , Resistant <0 or >16 Aztreonam (test Susceptible 0-8 , S code = 32) Resistant <0 or >8 Cefepime (test code Susceptible 0-8 , S = 51) Resistant <0 or >8 Ceftazidime (test Susceptible 0-8 , S code = 27) Resistant <0 or >8 Ciprofloxacin (test Susceptible 0-1 , S code = 7) Resistant <0 or >1 Gentamicin (test Susceptible 0-4 , S code = 18) Resistant <0 or >4 Levofloxacin (test Susceptible 0-2 , S code = 22) Resistant <0 or >2 Meropenem (test Susceptible 0-2 , S code = 34) Resistant <0 or >2 Piperacillin (test Susceptible 0-16 S code = 24) , Resistant <0 or >16 Piperacillin + Susceptible 0-16 S Tazobactam (test , Resistant <0 or code = 29) >16 Tobramycin (test Susceptible 0-4 , S code = 25) Resistant <0 or >4 GRAM STAIN RESULT <1+ WBCs (BEAKER) (test code = 1123) GRAM STAIN RESULT <1+ gram positive (BEAKER) (test code cocci in pairs = 226050) ANAEROBIC [id number] 04:21:00 Test Item Value Reference Range Interpretation Comments CULTURE (BEAKER) (test No anaerobes isolated code = 1095) TISSUE [id number] 18:19:00Surgical Pathology Report Case: [id number] Authorizing Provider: Jonny Lozano MD Collected: 08/23/2018 1734 Ordering Location: [facility] Received: 08/24/2018 1018 SERVICES Pathologist: Yenny Bender MD Specimen: Soft Tissue, Debridement, Right eye debridement tissue SOFT TISSUE, RIGHT EYE, DEBRIDEMENT: - FIBRINOPURULENT EXUDATE, NO VIABLE TISSUE SEEN - AFB AND GMS STAINS ARE NEGATIVE FOR ACID FAST ORGANISMS AND FUNGAL ELEMENTS Signing Pathologist Direct Phone Line: [phone] signed by Yenny Bender MD on 08/28/2018 at 6:19 [id number], [id number] [id number] cellulitis, bilateralRight eye debridement tissueReceived labeled with the patient's name and informationare two pieces of rubbery jimenez-longoria tissue measuring 1.5 x 0.8 x0.3 cm in aggregate. The specimen is submitted entirely in cassette A1. Performed.The interpretation of this case included the use of immun ohistochemistry or special stains. Immunohistochemistry technical testing was performed at [facility], Pathology Laboratory where it was developed and its performance characteristics were determined. It has not been cleared or approved by the U.S. Food and Drug Administration. The FDA has determined that such clearance or approval is not necessary. The test is used for clinical purposes. It should not be regarded as investigational or for research. This laboratory is certified under the Clinical Laboratory Improvement Amendments of 1988 (CLIA-88) as qualified to perform high complexity clinical laboratory testing.The interpretation of this case included the use of immunohistochemistry or special stains. A1: AFB, GMSImmunohistochemistry technical testing was performed at [facility], Pathology Laboratory where it was developed and its performance characteristics were determined. It has not been cleared or approved by the U.S. Food and Drug Administration. The FDA has determined that such clearance or approval is not necessary. The test is used for clinical purposes. It should not be regarded as investigational or for research. This laboratory is certified under the Clinical Laboratory Improvement Amendments of 1988 (CLIA-88) as qualified to perform high complexity clinical laboratory testing.VANCOMYCIN LEVEL, [id number] 11:42:00 Test Item Value Reference Range Interpretation Comments VANCOMYCIN TROUGH (BEAKER) (test 6.5 ug/mL 10.0-20.0 L code = 522) ANAEROBIC [id number] 19:44:00 Test Item Value Reference Range Interpretation Comments CULTURE (BEAKER) (test No anaerobes isolated code = 1095) SURGICALLY OBTAINED CULTURE + GRAM [id number] 10:40:00 Test Item Value Reference Range Interpretation Comments CULTURE (BEAKER) A 1+ Beta-hem olytic (test code = streptococcus g roup 1095) A, by serologic al grouping GRAM STAIN 1+ WBCs RESULT (BEAKER) (test code = 1123) GRAM STAIN No organisms seen RESULT (BEAKER) (test code = 24408) CBC W/PLT COUNT & AUTO [id number] 06:29:00 Test Item Value Reference Range Interpretation Comments WHITE BLOOD CELL COUNT (BEAKER) 8.2 K/ L 3.5-10.5 (test code = 775) RED BLOOD CELL COUNT (BEAKER) 4.82 M/ L 4.63-6.08 (test code = 761) HEMOGLOBIN (BEAKER) (test code = 15.0 GM/DL 13.7-17.5 410) HEMATOCRIT (BEAKER) (test code = 46.0 % 40.1-51.0 411) MEAN CORPUSCULAR VOLUME (BEAKER) 95.4 fL 79.0-92.2 H (test code = 753) MEAN CORPUSCULAR HEMOGLOBIN 31.1 pg 25.7-32.2 (BEAKER) (test code = 751) MEAN CORPUSCULAR HEMOGLOBIN CONC 32.6 GM/DL 32.3-36.5 (BEAKER) (test code = 752) RED CELL DISTRIBUTION WIDTH 12.4 % 11.6-14.4 (BEAKER) (test code = 412) PLATELET COUNT (BEAKER) (test 354 K/CU MM 150-450 code = 756) MEAN PLATELET VOLUME (BEAKER) 9.0 fL 9.4-12.4 L (test code = 754) NUCLEATED RED BLOOD CELLS 0 /100 WBC 0-0 (BEAKER) (test code = 413) NEUTROPHILS RELATIVE PERCENT 81 % (BEAKER) (test code = 429) LYMPHOCYTES RELATIVE PERCENT 8 % (BEAKER) (test code = 430) MONOCYTES RELATIVE PERCENT 10 % (BEAKER) (test code = 431) EOSINOPHILS RELATIVE PERCENT 0 % (BEAKER) (test code = 432) BASOPHILS RELATIVE PERCENT 0 % (BEAKER) (test code = 437) NEUTROPHILS ABSOLUTE COUNT 6.62 K/ L 1.78-5.38 H (BEAKER) (test code = 670) LYMPHOCYTES ABSOLUTE COUNT 0.62 K/ L 1.32-3.57 L (BEAKER) (test code = 414) MONOCYTES ABSOLUTE COUNT (BEAKER) 0.81 K/ L 0.30-0.82 (test code = 415) EOSINOPHILS ABSOLUTE COUNT 0.02 K/ L 0.04-0.54 L (BEAKER) (test code = 416) BASOPHILS ABSOLUTE COUNT (BEAKER) 0.02 K/ L 0.01-0.08 (test code = 417) IMMATURE GRANULOCYTES-RELATIVE 1 % 0-1 PERCENT (BEAKER) (test code = 2801) BASIC METABOLIC [id number] 08:42:00 Test Item Value Reference Range Interpretation Comments SODIUM (BEAKER) 137 meq/L 136-145 (test code = 381) POTASSIUM (BEAKER) 4.3 meq/L 3.5-5.1 (test code = 379) CHLORIDE (BEAKER) 106 meq/L 98-107 (test code = 382) CO2 (BEAKER) (test 25 meq/L 22-29 code = 355) BLOOD UREA NITROGEN 17 mg/dL 7-21 (BEAKER) (test code = 354) CREATININE (BEAKER) 0.79 mg/dL 0.57-1.25 (test code = 358) GLUCOSE RANDOM 81 mg/dL 70-105 (BEAKER) (test code = 652) CALCIUM (BEAKER) 9.0 mg/dL 8.4-10.2 (test code = 697) EGFR (BEAKER) (test 98 mL/min/1.73 ESTIMA KARLOS GFR IS code = 1092) sq m NOT ACCURATE CREATININE CLEARANCE IN PREDICTING GLOMERULAR FILTRATION RATE . ESTIMATED GFR I S NOT APPLICABLE FOR DIALYSIS PATIEN TS. CBC W/PLT COUNT & AUTO [id number] 07:00:00 Test Item Value Reference Range Interpretation Comments WHITE BLOOD CELL COUNT (BEAKER) 6.9 K/ L 3.5-10.5 (test code = 775) RED BLOOD CELL COUNT (BEAKER) 4.91 M/ L 4.63-6.08 (test code = 761) HEMOGLOBIN (BEAKER) (test code = 15.4 GM/DL 13.7-17.5 410) HEMATOCRIT (BEAKER) (test code = 46.8 % 40.1-51.0 411) MEAN CORPUSCULAR VOLUME (BEAKER) 95.3 fL 79.0-92.2 H (test code = 753) MEAN CORPUSCULAR HEMOGLOBIN 31.4 pg 25.7-32.2 (BEAKER) (test code = 751) MEAN CORPUSCULAR HEMOGLOBIN CONC 32.9 GM/DL 32.3-36.5 (BEAKER) (test code = 752) RED CELL DISTRIBUTION WIDTH 12.6 % 11.6-14.4 (BEAKER) (test code = 412) PLATELET COUNT (BEAKER) (test 331 K/CU MM 150-450 code = 756) MEAN PLATELET VOLUME (BEAKER) 9.0 fL 9.4-12.4 L (test code = 754) NUCLEATED RED BLOOD CELLS 0 /100 WBC 0-0 (BEAKER) (test code = 413) NEUTROPHILS RELATIVE PERCENT 68 % (BEAKER) (test code = 429) LYMPHOCYTES RELATIVE PERCENT 15 % (BEAKER) (test code = 430) MONOCYTES RELATIVE PERCENT 15 % (BEAKER) (test code = 431) EOSINOPHILS RELATIVE PERCENT 1 % (BEAKER) (test code = 432) BASOPHILS RELATIVE PERCENT 1 % (BEAKER) (test code = 437) NEUTROPHILS ABSOLUTE COUNT 4.66 K/ L 1.78-5.38 (BEAKER) (test code = 670) LYMPHOCYTES ABSOLUTE COUNT 1.01 K/ L 1.32-3.57 L (BEAKER) (test code = 414) MONOCYTES ABSOLUTE COUNT (BEAKER) 1.01 K/ L 0.30-0.82 H (test code = 415) EOSINOPHILS ABSOLUTE COUNT 0.05 K/ L 0.04-0.54 (BEAKER) (test code = 416) BASOPHILS ABSOLUTE COUNT (BEAKER) 0.04 K/ L 0.01-0.08 (test code = 417) IMMATURE GRANULOCYTES-RELATIVE 2 % 0-1 H PERCENT (BEAKER) (test code = 2801) HEMOGLOBIN [id number] 12:54:00 Test Item Value Reference Range Interpretation Comments HEMOGLOBIN A1C (BEAKER) (test code = 5.5 % 4.3-6.1 368) CBC W/PLT COUNT & AUTO [id number] 07:00:00 Test Item Value Reference Range Interpretation Comments WHITE BLOOD CELL COUNT (BEAKER) 10.1 K/ L 3.5-10.5 (test code = 775) RED BLOOD CELL COUNT (BEAKER) 4.76 M/ L 4.63-6.08 (test code = 761) HEMOGLOBIN (BEAKER) (test code = 15.2 GM/DL 13.7-17.5 410) HEMATOCRIT (BEAKER) (test code = 45.0 % 40.1-51.0 411) MEAN CORPUSCULAR VOLUME (BEAKER) 94.5 fL 79.0-92.2 H (test code = 753) MEAN CORPUSCULAR HEMOGLOBIN 31.9 pg 25.7-32.2 (BEAKER) (test code = 751) MEAN CORPUSCULAR HEMOGLOBIN CONC 33.8 GM/DL 32.3-36.5 (BEAKER) (test code = 752) RED CELL DISTRIBUTION WIDTH 12.1 % 11.6-14.4 (BEAKER) (test code = 412) PLATELET COUNT (BEAKER) (test 328 K/CU MM 150-450 code = 756) MEAN PLATELET VOLUME (BEAKER) 9.1 fL 9.4-12.4 L (test code = 754) NUCLEATED RED BLOOD CELLS 0 /100 WBC 0-0 (BEAKER) (test code = 413) NEUTROPHILS RELATIVE PERCENT 83 % (BEAKER) (test code = 429) LYMPHOCYTES RELATIVE PERCENT 6 % (BEAKER) (test code = 430) MONOCYTES RELATIVE PERCENT 9 % (BEAKER) (test code = 431) EOSINOPHILS RELATIVE PERCENT 0 % (BEAKER) (test code = 432) BASOPHILS RELATIVE PERCENT 0 % (BEAKER) (test code = 437) NEUTROPHILS ABSOLUTE COUNT 8.38 K/ L 1.78-5.38 H (BEAKER) (test code = 670) LYMPHOCYTES ABSOLUTE COUNT 0.59 K/ L 1.32-3.57 L (BEAKER) (test code = 414) MONOCYTES ABSOLUTE COUNT (BEAKER) 0.90 K/ L 0.30-0.82 H (test code = 415) EOSINOPHILS ABSOLUTE COUNT 0.01 K/ L 0.04-0.54 L (BEAKER) (test code = 416) BASOPHILS ABSOLUTE COUNT (BEAKER) 0.02 K/ L 0.01-0.08 (test code = 417) IMMATURE GRANULOCYTES-RELATIVE 2 % 0-1 H PERCENT (BEAKER) (test code = 2801) HEPATITIS B SURFACE [id number] 06:41:00 Test Item Value Reference Range Interpretation Comments HEPATITIS B SURFACE ANTIGEN (2) Nonreactive Nonreactive (BEAKER) (test code = 2585) HEPATITIS C [id number] 06:41:00 Test Item Value Reference Range Interpretation Comments HEPATITIS C ANTIBODY (BEAKER) Nonreactive Nonreactive (test code = 367) HIV-1 ANTIGEN WITH HIV-1/2 [id number] 06:41:00 Test Item Value Reference Range Interpretation Comments HIV-1 ANTIGEN WITH HIV 1\\T\\2 Nonreactive Nonreactive ANTIBODY (2) (BEAKER) (test code = 2586) BASIC METABOLIC [id number] 06:17:00 Test Item Value Reference Range Interpretation Comments SODIUM (BEAKER) 135 meq/L 136-145 L (test code = 381) POTASSIUM (BEAKER) 4.2 meq/L 3.5-5.1 (test code = 379) CHLORIDE (BEAKER) 103 meq/L 98-107 (test code = 382) CO2 (BEAKER) (test 24 meq/L 22-29 code = 355) BLOOD UREA NITROGEN 16 mg/dL 7-21 (BEAKER) (test code = 354) CREATININE (BEAKER) 0.78 mg/dL 0.57-1.25 (test code = 358) GLUCOSE RANDOM 99 mg/dL 70-105 (BEAKER) (test code = 652) CALCIUM (BEAKER) 9.4 mg/dL 8.4-10.2 (test code = 697) EGFR (BEAKER) (test 100 mL/min/1.73 ESTIM ATED GFR IS code = 1092) sq m NOT ACCURATE CREATININE CLEARANCE IN PREDICTING GLOMERULAR FILTRATION RATE . ESTIMATED GFR I S NOT APPLICABLE FOR DIALYSIS PATIEN TS. CT, MAXILLOFACIAL AREA, [id number] 13:58:00FINAL REPORT CT, MAXILLOFACIAL AREA, CONTRAST CLINICAL INDICATION: orbital arza lulitis/abscess COMPARISON: None TECHNIQUE: Contrast-enhanced CT of the maxillofacial area. Coronal and sagittal reconstructions were performed. DOSE REDUCTION: Dose modulation, iterative reconstruction, and/or weight-based adjustment of the mA/kV was utilized to reduce the radiation dose to as low as reasonably achievable. FINDINGS: Right ORBIT: Marked preseptal edema, soft tissue thickening and fatstranding. Additionally, there is post septal fat stranding along the posterior globe, insinuating between the optic nerve and the medial rectus. No drainable collection. Left orbit: Contralateral leftorbit demonstrates mild preseptal soft tissue stranding laterally, however, post septal stranding isnoted medially within the extraconal fat along the course of the lacrimal duct (axial image 42). Soft tissue stranding overlying the nasal bridge and nasal dorsum. Paranasal sinuses are predominantly clear. Specifically, no frontal or ethmoid disease which would be expected to contribute to orbital cellulitis. Visualized portions of the brain parenchyma are within normal limits. Reactive appearing lymph nodes bilaterally, none of which are enlarged by size criteria. Remainder the facial soft tissuesare within normal limits. There is partial visualization of anterior fusion at C3-C4. IMPRESSION: Findings concerning for orbital cellulitis (in the setting of acute infection) bilaterally with greater involvement of the right orbit orbit. Soft tissue thickening and stranding extends across the nasaldorsum and nasal bridge, suggestive of superimposed cellulitis. Imaging appearance is nonspecific and, although considered less likely, infiltrative processes such as lymphoma and/or skin malignancy may have a similar appearance and correlation with clinical findings May BE obtained. Signed: Qing Valle MDReport Verified Date/Time: 08/23/2018 13:58:20 [facility] C METABOLIC [id number] 07:30:00 Test Item Value Reference Range Interpretation Comments SODIUM (BEAKER) 136 meq/L 136-145 (test code = 381) POTASSIUM (BEAKER) 4.1 meq/L 3.5-5.1 (test code = 379) CHLORIDE (BEAKER) 103 meq/L 98-107 (test code = 382) CO2 (BEAKER) (test 23 meq/L 22-29 code = 355) BLOOD UREA NITROGEN 11 mg/dL 7-21 (BEAKER) (test code = 354) CREATININE (BEAKER) 0.71 mg/dL 0.57-1.25 (test code = 358) GLUCOSE RANDOM 93 mg/dL 70-105 (BEAKER) (test code = 652) CALCIUM (BEAKER) 9.5 mg/dL 8.4-10.2 (test code = 697) EGFR (BEAKER) (test 111 mL/min/1.73 ESTIM ATED GFR IS code = 1092) sq m NOT ACCURATE CREATININE CLEARANCE IN PREDICTING GLOMERULAR FILTRATION RATE . ESTIMATED GFR I S NOT APPLICABLE FOR DIALYSIS PATIEN TS. [id number] 07:11:00 Test Item Value Reference Range Interpretation Comments PROTIME (BEAKER) (test code = 14.2 seconds 11.7-14.7 759) INR (BEAKER) (test code = 370) 1.1 <=5.9 PARTIAL THROMBOPLASTIN TIME 32.8 seconds 22.5-36.0 (BEAKER) (test code = 760) RECOMMENDED COUMADIN/WARFARIN INR THERAPY RANGESSTANDARD DOSE: 2.0 - 3.0 Includes: PROPHYLAXIS forvenous thrombosis, systemic embolization; TREATMENT for venous thrombosis and/or pulmonary embolus.HIGH RISK: Target INR is 2.5-3.5 for patients with mechanical heart valves.CBC W/PLT COUNT & AUTO DIFFERENTIAL 2018-08-23 07:03:00 Test Item Value Reference Range Interpretation Comments WHITE BLOOD CELL COUNT (BEAKER) 8.8 K/ L 3.5-10.5 (test code = 775) RED BLOOD CELL COUNT (BEAKER) 4.95 M/ L 4.63-6.08 (test code = 761) HEMOGLOBIN (BEAKER) (test code = 15.6 GM/DL 13.7-17.5 410) HEMATOCRIT (BEAKER) (test code = 46.6 % 40.1-51.0 411) MEAN CORPUSCULAR VOLUME (BEAKER) 94.1 fL 79.0-92.2 H (test code = 753) MEAN CORPUSCULAR HEMOGLOBIN 31.5 pg 25.7-32.2 (BEAKER) (test code = 751) MEAN CORPUSCULAR HEMOGLOBIN CONC 33.5 GM/DL 32.3-36.5 (BEAKER) (test code = 752) RED CELL DISTRIBUTION WIDTH 12.2 % 11.6-14.4 (BEAKER) (test code = 412) PLATELET COUNT (BEAKER) (test 325 K/CU MM 150-450 code = 756) MEAN PLATELET VOLUME (BEAKER) 9.1 fL 9.4-12.4 L (test code = 754) NUCLEATED RED BLOOD CELLS 0 /100 WBC 0-0 (BEAKER) (test code = 413) NEUTROPHILS RELATIVE PERCENT 77 % (BEAKER) (test code = 429) LYMPHOCYTES RELATIVE PERCENT 10 % (BEAKER) (test code = 430) MONOCYTES RELATIVE PERCENT 11 % (BEAKER) (test code = 431) EOSINOPHILS RELATIVE PERCENT 1 % (BEAKER) (test code = 432) BASOPHILS RELATIVE PERCENT 0 % (BEAKER) (test code = 437) NEUTROPHILS ABSOLUTE COUNT 6.78 K/ L 1.78-5.38 H (BEAKER) (test code = 670) LYMPHOCYTES ABSOLUTE COUNT 0.86 K/ L 1.32-3.57 L (BEAKER) (test code = 414) MONOCYTES ABSOLUTE COUNT (BEAKER) 0.93 K/ L 0.30-0.82 H (test code = 415) EOSINOPHILS ABSOLUTE COUNT 0.06 K/ L 0.04-0.54 (BEAKER) (test code = 416) BASOPHILS ABSOLUTE COUNT (BEAKER) 0.02 K/ L 0.01-0.08 (test code = 417) IMMATURE GRANULOCYTES-RELATIVE 2 % 0-1 H PERCENT (BEAKER) (test code = 2111)
[2020-05-02 23:51] LABS: Absolute Lymphocytes (CBC) 1.1 K/uL (0.7-4.9); Basophils % 0.5 % (0-1.3); Hematocrit 44.6 % (39.6-49.0); Lymphocytes % 20.5 % (15.3-44.8); MPV 7.5 fL (7.6-11.3); RBC Red Blood Cell Count 4.76 M/uL (4.33-5.43)
[2020-05-03 00:04] LABS: Potassium 3.7 mmol/L (3.5-5.1)
[2020-05-03] MEDS ORDERED: NA CHLORIDE 0.9% 1,000 ML ONE (00:08)
[2020-05-03] MEDS ORDERED: KETOROLAC 30 MG/ML INJ ONE (01:43)
--- NOTE | 2020-05-03 02:09 | ER ---
Nurse's Notes [facility] Name: James Wei Age: 70 yrs Sex: Male : 1950 Arrival Date: 05/02/2020 Time: 22:54 Bed 8 Private MD: Bal Vargas Diagnosis: Fall on same level from slipping, tripping and stumbling;Low back pain;Alcohol use, unspecified with intoxication Presentation: 05/02 22:54 Chief complaint: EMS states: Fall from standing, pt reports he fell and hit his lower sg back against an ice chest/cooler, pt reports lower back surgery in 2013, pt complaining of lower back pain. Coronavirus screen: Client denies travel out of the [place] in the last 14 days. At this time, the client does not indicate any symptoms associated with coronavirus-19. Ebola Screen: Patient negative for fever greater than or equal to 101.5 degrees Fahrenheit, and additional compatible Ebola Virus Disease symptoms Patient denies exposure to infectious person. Patient denies travel to an Ebola-affected area in the 21 days before illness onset. No symptoms or risks identified at this time. Initial Sepsis Screen: Does the patient meet any 2 criteria? No. Patient's initial sepsis screen is negative. Does the patient have a suspected source of infection? No. Patient's initial sepsis screen is negative. Risk Assessment: Do you want to hurt yourself or someone else? Patient reports no desire to harm self or others. Onset of symptoms was May 02, 2020. Care prior to arrival: None. Transition of care: patient was not received from another setting of care. 22:54 Method Of Arrival: EMS: [facility] sg 22:54 Acuity: KIRILL 3 sg Historical: - Allergies: 22:57 PENICILLINS; sg - PMHx: 22:57 Hypertension; Myocardial infarction; sg - PSHx: 22:57 spinal fusion; sg - Immunization history:: Adult Immunizations. - Social history:: Smoking status: Patient denies any tobacco usage or history of. Screenin:59 Abuse screen: Denies threats or abuse. Denies injuries from another. Nutritional wh screening: No deficits noted. Tuberculosis screening: No symptoms or risk factors identified. Fall Risk Fall in past 12 months (25 points). Assessment: 23:02 General: Appears in no apparent distress. Behavior is calm, cooperative, Smells of wh alcohol. Pain: Complains of pain in back Pain currently is 9 out of 10 on a pain scale. Neuro: Level of Consciousness is awake, alert, obeys commands, Oriented to person, place, time, situation, Appropriate for age. Cardiovascular: Capillary refill < 3 seconds. Respiratory: Airway is patent Respiratory effort is even, unlabored, Respiratory pattern is regular, symmetrical. GI: Abdomen is flat, non-distended. : No signs and/or symptoms were reported regarding the genitourinary system. EENT: No signs and/or symptoms were reported regarding the EENT system. Derm: Skin is intact, is healthy with good turgor. Musculoskeletal: Circulation, motion, and sensation intact. 23:15 Reassessment: Spoke with Alycia, reports being patient's close friend, has access code, lp1 updated on patient having imaging done; Reports to call for any updates or needs for patient, phone number [phone]. 23:33 Reassessment: Patient returned from CT at this time. lp1 05/03 00:00 Reassessment: Reports pain to right low back, " I have that constantly because of my lp1 surgeries"; C-collar remains in place. General: Appears in no apparent distress. Neuro: Level of Consciousness is awake, alert, obeys commands. Respiratory: Respiratory effort is even, unlabored. 01:00 Reassessment: Patient resting, eyes closed, respirations even; C-collar in place. lp1 01:35 Reassessment: Patient denies need for medication for back pain, states "If it's not the lp1 good stuff, I don't want it. I have Flexeril at home". 01:45 Reassessment: patient noted to be standing at end of the bed, states "I gotta get all lp1 these fuckin things off of me"; removed BP cuff and pulse ox from patient; patient expresses wanting to go home at this time, informed of need for ride home, patient refuses stating, "I can walk myself out of here"; Nurses assisted patient to bathroom, walking independently, steady gait. Vital Signs: 05/02 23:00 BP 154 / 99; Pulse 77; Resp 18; Temp 98.4; Pulse Ox 99% ; Weight 108.86 kg; Height 6 ft. 2 in. (187.96 cm); Pain 9/10; 23:45 BP 135 / 96; Pulse 75; Resp 18; Pulse Ox 97% on R/A; lp1 12 00:30 BP 130 / 84; Pulse 74; Resp 18; Pulse Ox 99% on R/A; lp1 01:30 BP 143 / 88; Pulse 61; Resp 18; Pulse Ox 98% on R/A; lp1 05/02 23:00 Body Mass Index 30.81 (108.86 kg, 187.96 cm) ED Course: 05/02 22:54 Patient arrived in ED. sg 22:54 Bal Vargas is Private Physician. 22:54 Arm band placed on. sg 22:56 Triage completed. 22:58 Sheryl Park is Primary Nurse. 22:59 Serg Suarez PA is PHCP. cp 22:59 Eric Davenport MD is Attending Physician. cp 22:59 Patient has correct armband on for positive identification. Bed in low position. Call light in reach. Side rails up X 1. Pulse ox on. NIBP on. 22:59 Rigid cervical collar applied and checked by physician. 23:33 Iliana Han, RN is Primary Nurse. lp1 23:40 Initial lab(s) drawn, by me, sent to lab. Inserted saline lock: 20 gauge in right lp1 antecubital area, using aseptic technique. Blood collected. 05/03 00:16 CT Traumagram (Head C Spine CAP wo con) In Process Unspecified. EDMS 01:45 No provider procedures requiring assistance completed. IV discontinued, No lp1 redness/swelling at site. Pressure dressing applied. Administered Medications: 00:00 Drug: NS 0.9% 1000 ml Route: IV; Rate: 1000 ml/hr; Site: right antecubital; lp1 01:45 Follow up: IV Status: IV converted to saline lock; IV Intake: 500ml ; Patient agitated, lp1 demanding to have IV removed 01:42 Not Given (Patient Refused): Ketorolac 15 mg IVP once lp1 Intake: 01:45 IV: 500ml; Total: 500ml. lp1 Outcome: 02:08 Discharge ordered by . tw4 02:20 Discharged to home ambulatory, with Alycia, whom states she is " the patients person." sg 02:20 Condition: good 02:20 Discharge instructions given to patient, please note this patient is alert and oriented x3 at this time, is verbalizing that "yes, I know I have a drinking problem and all of the pills Im supposed to take, but its like I told the doctor we are all gonna someday anyway." Instructed on discharge instructions, follow up and referral plans. Demonstrated understanding of instructions, follow-up care. 02:21 Patient left the ED. sg Signatures: Dispatcher [employer] EDOrestes Nobles RN RN sg Iliana Han RN RN lp1 Serg Suarez PA PA cp Habalo, Winsy wh Wadley, Terrence, MD MD tw4 Corrections: (The following items were deleted from the chart) 01:42 01:33 Ketorolac 15 mg IVP in right antecubital lp1 lp1
--- NOTE | 2020-05-03 02:09 | EDPHYS ---
Physician Documentation [facility] Name: James Wei Age: 70 yrs Sex: Male : 1950 Arrival Date: 05/02/2020 Time: 22:54 Bed 8 Private MD: Bal Vargas ED Physician Eric Davenport HPI: 05/02 23:05 This 70 yrs old Male presents to ER via EMS with complaints of Low Back Pain. cp 23:05 The patient presents with pain that is acute. The symptoms are located in the low back. cp The pain does not radiate. The problem was sustained during a fall. Onset: The symptoms/episode began/occurred just prior to arrival. Associated signs and symptoms: Pertinent positives: admits to consuming 3 beers and 2 shots of alcohol tonight. Reports falling back and striking cooler. Historical: - Allergies: 22:57 PENICILLINS; sg - PMHx: 22:57 Hypertension; Myocardial infarction; sg - PSHx: 22:57 spinal fusion; sg - Immunization history:: Adult Immunizations. - Social history:: Smoking status: Patient denies any tobacco usage or history of. ROS: 23:10 Back: Positive for pain at rest, pain with movement, of the low back. cp 23:10 Cardiovascular: Negative for chest pain. cp 23:10 Abdomen/GI: Negative for abdominal pain. 23:10 Neuro: Negative for headache. 23:10 All other systems are negative. Exam: 23:15 Constitutional: The patient appears in no acute distress, alert, awake, cp non-diaphoretic, well developed, well nourished. 23:15 Head/Face: Normocephalic, atraumatic. cp 23:15 Eyes: Periorbital structures: appear normal, Pupils: equal, round, and reactive to light and accomodation, Conjunctiva: normal, no exudate, no injection, Sclera: no appreciated abnormality, Lids and lashes: appear normal, bilaterally. 23:15 ENT: External ear(s): are unremarkable, Nose: is normal, Posterior pharynx: Airway: no evidence of obstruction, patent. 23:15 Neck: C-spine: C-collar placed in ED. 23:15 Chest/axilla: Inspection: normal, Palpation: is normal, no crepitus, no tenderness. 23:15 Cardiovascular: Rate: normal, Rhythm: regular. 23:15 Respiratory: the patient does not display signs of respiratory distress, Respirations: normal, no use of accessory muscles, no retractions, labored breathing, is not present, Breath sounds: are clear throughout, no decreased breath sounds, no stridor, no wheezing. 23:15 Abdomen/GI: Inspection: abdomen appears normal, Palpation: abdomen is soft and non-tender, in all quadrants. 23:15 Back: pain, that is moderate, of the low back area, ROM is painful, with all movement. 23:15 Neuro: Orientation: to person, place \T\ time. Mentation: able to follow commands, slow to respond, Motor: moves all fours, strength is normal, Sensation: no obvious gross deficits. Vital Signs: 23:00 BP 154 / 99; Pulse 77; Resp 18; Temp 98.4; Pulse Ox 99% ; Weight 108.86 kg; Height 6 wh ft. 2 in. (187.96 cm); Pain 9/10; 23:45 BP 135 / 96; Pulse 75; Resp 18; Pulse Ox 97% on R/A; lp1 12 00:30 BP 130 / 84; Pulse 74; Resp 18; Pulse Ox 99% on R/A; lp1 01:30 BP 143 / 88; Pulse 61; Resp 18; Pulse Ox 98% on R/A; lp1 12 23:00 Body Mass Index 30.81 (108.86 kg, 187.96 cm) wh MDM: 05/02 23:09 Patient medically screened. cp 23:15 Differential diagnosis: fracture, contusion, intracranial bleed. cp 05/03 01:07 Data reviewed: vital signs, nurses notes, lab test result(s), radiologic studies, CT cp scan. ED course: CT trauma gram negative for acute trauma. 05/02 23:00 Order name: Basic Metabolic Panel; Complete Time: 00:50 cp 05/03 00:50 Interpretation: Normal except: GFR 57. cp 05/02 23:00 Order name: CBC with Diff; Complete Time: 00:50 cp 05/03 00:50 Interpretation: Normal except: MPV 7.5. cp 05/02 23:00 Order name: Type And Screen cp 05/03 00:54 Order name: Antibody Identification EDNJ 05/03 01:10 Order name: ETOH Level cp 05/03 01:10 Order name: LAB Add On 05/02 23:00 Order name: CT Traumagram (Head C Spine CAP wo con) 05/02 23:00 Order name: Labs collected and sent; Complete Time: 23:46 cp Administered Medications: 00:00 Drug: NS 0.9% 1000 ml Route: IV; Rate: 1000 ml/hr; Site: right antecubital; lp1 01:45 Follow up: IV Status: IV converted to saline lock; IV Intake: 500ml ; Patient agitated, lp1 demanding to have IV removed 01:42 Not Given (Patient Refused): Ketorolac 15 mg IVP once lp1 Disposition: 02:33 Co-signature as Attending Physician, Eric Davenport MD I agree with the assessment and tw4 plan of care. Disposition: 05/03/20 02:08 Discharged to Home. Impression: Fall on same level from slipping, tripping and stumbling, Low back pain, Alcohol use, unspecified with intoxication. - Condition is Stable. - Discharge Instructions: Alcohol Intoxication, Back Pain, Adult, Back Exercises. - Medication Reconciliation Form, Thank You Letter, Antibiotic Education, Prescription Opioid Use form. - Follow up: Private Physician; When: 1 - 2 days; Reason: Recheck today's complaints. - Problem is new. - Symptoms have improved. Signatures: Dispatcher [employer] EDNJ Orestes Roberts RN RN sg Iliana Han RN RN lp1 Serg Suarez PA PA cp Wadley, Terrence, MD MD tw4 Corrections: (The following items were deleted from the chart) 05/02 23:30 23:05 Associated signs and symptoms: Pertinent positives: admits to consuming , cp cp 05/03 02:21 02:08 05/03/2020 02:08 Discharged to Home. Impression: Fall on same level from sg slipping, tripping and stumbling; Low back pain; Alcohol use, unspecified with intoxication. Condition is Stable. Discharge Instructions: Alcohol Intoxication, Back Pain, Adult, Back Exercises. Forms are Medication Reconciliation Form, Thank You Letter, Antibiotic Education, Prescription Opioid Use. Follow up: Private Physician; When: 1 - 2 days; Reason: Recheck today's complaints. Problem is new. Symptoms have improved. tw4
--- NOTE | 2020-05-04 10:33 | RAD REPORT ---
EXAM DESCRIPTION: Head C Spine Cap Wo Con CLINICAL HISTORY: 70-year-old male status post fall. COMPARISON: None. TECHNIQUE: CT brain and cervical spine without contrast. This exam was performed according to our de partmental dose optimization program which includes use of automated exposure control, adjustment of the mA and/or kV according to patient size and/or use of iterative reconstruction technique. FINDINGS: The ventricles, sulci, and cisterns are symmetric and unremarkable. The jenkins-white matte r differentiation is preserved. There is no mass effect, midline shift, intra- or extra-axial fluid collection/acute hemorrhage. The osseous structures are unremarkable. The paranasal sinuses reve al mild mucosal thickening of the ethmoid air cells otherwise the remaining paranasal sinuses and mas toid air cells are clear. IMPRESSION: 1. No acute intracranial abnormalities. TECHNIQUE: Cervical spine CT was performed without contrast. Multiplanar reformatted images were pro vided. This exam was performed according to our departmental dose optimization program which includes use of automated exposure control, adjustment of the mA and/or kV according to patient size and/or u se of iterative reconstruction technique. COMPARISON: None. FINDINGS: There is normal alignment of the cervical spine without fracture or subluxation. The facet s are normal in alignment bilaterally. The posterior elements including the spinous processes are int act. Straightening of the cervical spine which may be secondary to positioning for the examination. Morphology and attenuation of the vertebral bodies and intervertebral disk spaces is compatible with multilevel degenerative change. Multilevel loss of vertebral body height. Multilevel posterior osseous spurring results in neuroforam inal narrowing throughout the cervical spine. Postoperative changes are identified following the ventral cervical fusion. Cervical fusion hardware present at the C3-4 vertebral level with intervertebral disk spacing hardware incomplete bony fusion. Additionally, multilevel complete bony fusion involves the C3-4, C4-5 and C5-6 vertebral levels. Par tial facet fusion is present at this level. Multilevel facet degenerative change is otherwise present throughout the cervical spine. Additionally, multilevel posterior osseous spurring at the C3-4, C4-5 vertebral levels resulting in m ild effacement of the ventral thecal sac and possible mild central spinal canal narrowing. The pre-and paravertebral soft tissues are within normal limits. IMPRESSION: 1. Straightening of the cervical spine which may be secondary to positioning for the exa mination versus spasm. 2. No fracture or acute subluxation. CT of the chest, abdomen and pelvis was performed without intravenous or oral contrast. Multiplanar r eformatted images were provided. This exam was performed according to our departmental dose optimizat ion program which includes use of automated exposure control, adjustment of the mA and/or kV accordin g to patient size and/or use of iterative reconstruction technique. FINDINGS: Evaluation of solid organ pathology is limited secondary to lack of intravenous contrast. Within these limitations, the following observations are made. Chest: Evaluation through the lungs reveal no focal opacity, pleural effusion or pneumothorax. Heart size is within normal limits. No pericardial effusion. Abdomen and pelvis: The liver, gallbladder, pancreas, spleen, bilateral kidneys and bilateral adrenal glands are within normal limits. Aortic calcification present within the lower pole of the LEFT kidn ey compatible with nonobstructing calculus. The vessels are normal in caliber. No abdominopelvic lymph nodes are noted to be pathologically enlarged by CT measurement criteria. The bowel is within normal limits without abnormal bowel wall thickness or bowel dilation. No free air. No free abdominopelvic fluid collections. The appendix is within normal limits. Enlarged bladder. The osseous structures reveal degenerative change. Postoperative changes of the lumbar spine are iden tified with surgical screws traversing the bilateral pedicles of L2, three, L5 and S1 vertebral level s with multilevel posterior laminectomy. Spacing hardware is present at the level of the spinous proc esses of T12-L1 and L1-2 suspected hemangioma present at the C3 and T6 vertebrae. Bilateral fat-containing inguinal hernia. IMPRESSION: 1. No specific acute intrathoracic or intra-abdominal findings status post fall. Electronically signed by: Janie Hurtado MD 05/03/2020 12:58 AM EQUIPMENT INSTALLATION PROFESSIONAL Due to temporary technical issues with the PACS/Fluency reporting system, reports are being signed by the in house radiologist without review as a courtesy to ensure prompt reporting. The interpreting r adiologist is fully responsible for the content of the report.
[2020-05-07 07:22] VITALS: TEMP 98.4
[2020-05-07 08:04] VITALS: BP 143/88; O2SAT 98
== END 2020-05-03 02:21 | disposition home or self-care (01) ==
LOC: ER 22:50
DX: F10.929 Alcohol use, unspecified with intoxication, unspecified (principal); W01.198A Fall on same level from slipping, tripping and stumbling with subsequent striking against other object, initial encounter; Y93.89 Activity, other specified; Y92.9 Unspecified place or not applicable; Z88.0 Allergy status to penicillin; I25.2 Old myocardial infarction; I10 Essential (primary) hypertension
CPT/HCPCS: 36415; 70450; 71250; 72125; 80048; 80320; 85025; 86850; 86870; 86900; 86901; 86902; 96360; 96361; 99284

== ENCOUNTER 2022-01-31 14:52 | Emergency (ER) | payer OTHER ==
--- OUTSIDE RECORDS SUMMARY | 2022-01-31 15:08 | XMS REPORT | Continuity of Care Document ---
:[address] [facility] [place], [place] t Address [address] [place] [address] Care Team Providers Name Role Phone Bal Vargas Primary Care Physician [phone] RACHEL CLEMENTS Attending Clinician Unavailable Husam Austin Attending Clinician RACHEL CLEMENTS Admitting Clinician Unavailable Problems Condition Condition Condition Status Onset Resolution Last Treating Co mments Source Name Details Category Date Date Treatment Clinician Date Orbital Orbital Disease Active [facility] 00 [facility] Cellulitis Cellulitis Disease Active [facility] of both of both 3-27 [facility] orbits orbits 00:00: Medical 00 [place] Essential Essential Disease Active [facility] hypertensi hypertensi 3-27 Maggy kes on on 00:00: Medical 00 [place] 722.4 - 722.4 - Diagnosis Active 2013-09-20 [facility] CERVICAL CERVICAL 4-15 11:39:00 l DISC D DISC D 00:01: Oracle Active 00 09/10/2013 [facility] No known No known Disease Metho di active active st problems problems Hospit a l Allergies, Adverse Reactions, Alerts Allergy Allergy Status Severity Reaction(s) Onset Inactive Treating Comm ents Source Name Type Date Date Clinician Penicill Propensi Active Rash Method i ins ty to 7-02 st adverse 00:00: Hospita reaction 00 l s to drug Penicill Propensi Active Rash [facility] adverse 00:00: Medical reaction 00 Center s PENICILL Allergy Active High Rash [facility] 08[facility]22 [facility] Family History Family Member Diagnosis Comments Start Date Stop Date Source Other Cancer [facility] Social History Social Habit Start Date Stop Date Quantity Comments Source History SDOH [facility] Alcohol Frequency [facility] History SDOH [facility] Alcohol Std Drinks Medica l Center History SDOH [facility] Alcohol Binge Medical Ciara ter History of tobacco Current smoker [facility] use Hospital Alcohol intake 2018-11-28 2018-11-28 Current drinker [facility] dist 00:00:00 00:00:00 of alcohol Hospital (finding) Alcohol Comment 2018-11-27 2018-11-27 daily [facility] 00:00:00 00:00:00 Hospital Tobacco use and 2018-08-22 2018-08-[address] [facility] [address] Maggy kes exposure 00:00:00 00:00:00 Medical Center Sex Ass[birth year] At [birth year] [facility] 00:00:00 00:00:00 Hospital Smoking Status Start Date Stop Date Source Ex-smoker 2018-11-27 00:00:00 2018-11-27 00:00:00 [facility] Medications Ordered Filled Start Stop Current Ordering Indication Dosage Frequency Signature Comments Components Source Medication Medication Date Date Medication? Clinician (SIG) Name Name metoprolol Yes 50mg Q.5D Take 50 mg M ethodi tartrate 7-[address] (LOPRESSOR) 09:22: (two) Hospi ta 50 mg 35 times a l tablet day. losartan Yes 100mg QD Take 100 Meth tayla (COZAAR) 7-[address] 100 MG 09:22: mouth Hospita tablet 35 daily. l celecoxib Yes 200mg Q.5D Take 200 Met hodi (CeleBREX) 7-[address] 200 MG 09:22: mouth 2 Hospita capsule 35 (two) l times a day. levocetiriz Yes Take by Met hodi ine 7-[address] dihydrochlo 09:22: Hospit a ride (XYZAL 35 l ORAL) armodafinil Yes 150mg QD Take 150 M ethodi 150 mg 7-[address] tablet 09:22: mouth Hospita 35 daily. losartan 2019-0 Yes 100mg QD Take [address] (COZAAR) 4-03 mg by [facility] 100 MG 17:25: mouth Medical tablet 28 daily. [place] metoprolol 2018-0 Yes 50mg QD Take [address] (TOPROL-XL) 4-03 by mouth Luke s 50 MG 24 hr 17:25: daily. Medi scarlett tablet 28 Center levocetiriz 2018-0 Yes 5mg QD Take [address] ine (XYZAL) 4-03 by mouth Luke s 5 MG tablet 17:25: every Medic al 28 evening. Center neomycin-po 0 Yes Apply 0.[address] lymyxin-dex 4-03 inch [facility] amethasone 00:00: ribbon to Dc dical (POLYDEX) 00 each eye Center 3.5 twice mg/g-10,000 daily for unit/g-0.1 two weeks. % Oint ophthalmic ointment Procedures This patient has no known procedures. Encounters Start End Encounter Admission Attending Care Care Encounter Source Date/Time Date/Time Type Type Clinicians Facility Department ID 2014-01-28 2014-01-29 Outpt Diag nullFlavo [facility] [id number] Memoria 21:35:00 04:59:00 Services r Outpatient 01 l Poli Kerri Riley grover Moyer 2014-01-28 2014-01-28 Outpatient Small, [id number] 16:35:00 23:59:00 Husam [id number] [place] [id number] 2013-09-21 Outpt Diag nullFlavo [facility] [id number] Memoria 16:20:00 04:59:00 Services r Outpatient 00 l Poli Lin grover Moyer 2013-09-20 2013-09-20 Outpatient Small, [id number] 11:20:00 23:59:00 Husam [id number] [place] [id number] 01 Results Test Description Test Time Test Comments Results Result Comments Source AFB CULTURE + SMEAR 2018-10-07 18:35:00 Test Item Value Reference Range Interpretation Comme nts CULTURE (BEAKER) (test code = 1095) No acid-fast bacilli isolated i n 42 days AFB SMEAR (BEAKER) (test code = 994) No acid fast bacilli seen FUNGUS CULTURE + [id number] 18:21:00 Test Item Value Reference Range Interpretation Comments CULTURE (BEAKER) (test No fungus isolated in code = 1095) 28 days FUNGUS SMEAR (BEAKER) No fungi seen (test code = 1406) FUNGUS CULTURE + [id number] 17:34:00 Test Item Value Reference Range Interpretation Comments CULTURE (BEAKER) (test No fungus isolated in code = 1095) 28 days FUNGUS SMEAR (BEAKER) No fungi seen (test code = 1406) TISSUE [id number] 18:13:00Surgical Pathology Report Case: [id number] Authorizing Provider: Jonny Lozano MD Collected: 08/25/2018 8787 Ordering Location: [address] Received: 08/27/2018 0826 Service Pathologist: Kaley Diallo MD Specimen: Eye, Right, Necrotic tissue SUBMITTED "NECROTIC TISSUE, RIGHT EYE", DEBRIDEMENT: - NECROTIC TISSUE WITH MIXED INFLAMMATION - NO FUNGAL ORGANISMS OR ACID FAST BACILLI IDENTIFIED ON SPECIAL STAINS Signing Pathologist Direct Phone Line: [phone] signed by Kaley Diallo MD on 08/31/2018 at 6:13 PMPreliminary result electronically signed by Kaley Diallo MD on 08/28/2018 at 12:44 PMCorrelation with microbiology culture studies is recommended.[id number] cellulitis bilateral Right eye necrotic tissueThe specimen is received in a formalin-filled container and labeled with the patient's information and labeled "right eye necrotic tissue" consists of four fragments of red soft tissue tissue ranging from 0.1 to 0.6 cm, submitted A1. CG/pl Performed.AFB-negative for acid fast bacilliGMS- negative for fungal organismsPAS-negative for fungal organismsControls are adequate.The above special studies were performed in this case and the interpretation is incorporated in the diagnostic report above:The tests were performed in [facility], Pathology Laboratory. It has not been cleared [...] clinical laboratory testing.SURGICALLY OBTAINED CULTURE + GRAM [id number] 10:30:00 Test Item Value Reference Range Interpretation [...] (BEAKER) (test code cocci in pairs = 663799) ANAEROBIC [id number] 04:21:00 Test Item Value Reference Range Interpretation Comments CULTURE (BEAKER) (test No anaerobes isolated code = 1095) TISSUE [id number] 18:19:00Surgical Pathology Report Case: [id number] Authorizing Provider: Jonny Lozano MD Collected: 08/23/2018 9590 Ordering Location: [facility] Received: 08/24/2018 1018 SERVICES Pathologist: Yenny Bender MD Specimen: Soft Tissue, Debridement, Right eye debridement tissue SOFT TISSUE, RIGHT EYE, DEBRIDEMENT: - FIBRINOPURULENT EXUDATE, NO VIABLE TISSUE SEEN - AFB AND GMS STAINS ARE NEGATIVE FOR ACID FAST ORGANISMS AND FUNGAL ELEMENTS Signing Pathologist Direct Phone Line: [phone] signed by Yenny Bender MD on 08/28/2018 at 6:19 [id number] [id number] cellulitis, bilateralRight eye debridement tissueReceived labeled with the patient's name and information are two pieces of rubbery jimenez-longoria tissue measuring 1.5 x 0.8 x0.3 cm in aggregate. The specimen i s submitted entirely in cassette A1. Performed.The interpretation of this case included the use of immunohistochemistry or special stains. Immunohistochemistry technical testing was performed at [facility], Pathology Laboratory where it was developed and its performance characteristics were determined. It has not been cleared or approved by the U.S. Food and Drug Administration.The FDA has determined that such clearance or [...] AFB, GMSImmunohistochemistry technical testing was performed at [facility], Pathology Laboratory where it was developed and [...] perform high complexity clinical laboratory testing.VANCOMYCIN LEVEL, [id number] 11:42:00 Test Item Value Reference Range Interpretation Comments VANCOMYCIN TROUGH (BEAKER) (test 6.5 ug/mL 10.0-20.0 L code = 522) ANAEROBIC [id number] 19:44:00 Test Item Value Reference Range Interpretation Comments CULTURE (BEAKER) (test No anaerobes isolated code = 1095) SURGICALLY OBTAINED CULTURE + GRAM [id number] 10:40:00 Test Item Value Reference Range Interpretation Comments CULTURE (BEAKER) A 1+ Beta-hem olytic (test code = streptococcus g roup 1095) A, by serologic al grouping GRAM STAIN 1+ WBCs RESULT (BEAKER) (test code = 1123) GRAM STAIN No organisms seen RESULT (BEAKER) (test code = 14210) CBC W/PLT COUNT & AUTO [id number] 06:29:00 Test Item Value Reference Range Interpretation [...] (BEAKER) (test code = 2801) BASIC METABOLIC [id number] 08:42:00 Test Item Value Reference Range Interpretation [...] PATIEN TS. CBC W/PLT COUNT & AUTO [id number] 07:00:00 Test Item Value Reference Range Interpretation [...] PERCENT (BEAKER) (test code = 2801) HEMOGLOBIN [id number] 12:54:00 Test Item Value Reference Range Interpretation Comments HEMOGLOBIN A1C (BEAKER) (test code = 5.5 % 4.3-6.1 368) CBC W/PLT COUNT & AUTO [id number] 07:00:00 Test Item Value Reference Range Interpretation [...] (test code = 2801) HEPATITIS B SURFACE [id number] 06:41:00 Test Item Value Reference Range Interpretation Comments HEPATITIS B SURFACE ANTIGEN (2) Nonreactive Nonreactive (BEAKER) (test code = 2585) HEPATITIS C [id number] 06:41:00 Test Item Value Reference Range Interpretation Comments HEPATITIS C ANTIBODY (BEAKER) Nonreactive Nonreactive (test code = 367) HIV-1 ANTIGEN WITH HIV-1/2 [id number] 06:41:00 Test Item Value Reference Range Interpretation Comments HIV-1 ANTIGEN WITH HIV 1\\T\\2 Nonreactive Nonreactive ANTIBODY (2) (BEAKER) (test code = 2586) BASIC METABOLIC [id number] 06:17:00 Test Item Value Reference Range Interpretation [...] FOR DIALYSIS PATIEN TS. CT, MAXILLOFACIAL AREA, [id number] 13:58:00FINAL REPORT CT, MAXILLOFACIAL AREA, CONTRAST CLINICAL INDICATION: orbital cellu litis/abscess COMPARISON: None TECHNIQUE: Contrast-enhanced CT of the maxillofacial area. Coronal and sagittal reconstructions were performed. DOSE REDUCTION: Dose modulation, iterative reconstruction,and/or weight-based adjustment of the mA/kV was utilized to reduce the radiation dose to as low as reasonably achievable. FINDINGS: Right ORBIT: Marked preseptal edema, soft tissue thickening and fat stranding. Additionally, there is post septal fat stranding along the posterior globe, insinuating between the optic nerve and the medial rectus. No drainable collection. Left orbit: Contralateral left orbit demonstrates mild preseptal soft tissue stranding laterally, however, post septal stranding is noted medially within the extraconal fat along the [...] by size criteria. Remainder the facial soft tissues are within normal limits. There is partial visualization of anterior fusion at C3- C4. IMPRESSION: Findings concerning for orbital cellulitis (in the setting of acute infection) bilaterally with greater involvement of the right orbit orbit. Soft tissue thickening and stranding extends across the nasal dorsum and nasal bridge, suggestive of superimposed cellulitis. Imaging appearance is nonspecific and, although considered less likely, infiltrative processes such as lymphoma and/or skin malignancy may have a similar appearance and correlation with clinical findings May BE obtained. Signed: Qing Valle MDReport Verified Date/Time: 08/23/2018 13:58:20 Reading Location: [facility] Radiology Reading Room [facility] METABOLIC [id number] 07:30:00 Test Item Value Reference Range Interpretation [...] S NOT APPLICABLE FOR DIALYSIS PATIEN TS. [id number] 07:11:00 Test Item Value Reference Range Interpretation Comments PROTIME (BEAKER) (test code = 14.2 seconds 11.7-14.7 759) INR (BEAKER) (test code = 370) 1.1 <=5.9 PARTIAL THROMBOPLASTIN TIME 32.8 seconds 22.5-36.0 (BEAKER) (test code = 760) RECOMMENDED COUMADIN/WARFARIN INR THERAPY RANGESSTANDARD DOSE: 2.0 - 3.0 Includes: PROPHYLAXIS for venous thrombosis, systemic embolization; TREATMENT for venous thrombosis and/or pulmonary embolus.HIGH RISK: Target INR is 2.5-3.5 for patients with mechanical heart valves.CBC W/PLT COUNT & AUTO [id number] 07:03:00 Test Item Value Reference Range Interpretation [...] 0-1 H PERCENT (BEAKER) (test code = 9515)
--- NOTE | 2022-01-31 16:24 | RAD REPORT ---
EXAM DESCRIPTION: RAD - Ribs Bilateral W/Chest - 01/31/2022 4:02 pm CLINICAL HISTORY: TRAUMA COMPARISON: Chest Single View dated 08/19/2018 FINDINGS: Linear opacities are present bilaterally. This may represent scarring or subsegmental atel ectasis. Mildly displaced left-sided rib fractures are identified. This includes the left lateral eig hth and probably ninth ribs. Other nondisplaced rib fractures or minimally displaced rib fractures ma y also be present though not well-visualized. No right-sided rib fractures are identified. Fusion lili dware is present in the spine. Heart size is within normal limits. IMPRESSION: 1. At least 2 mildly displaced left-sided rib fractures are identified. No underlying pn eumothorax. 2. Linear opacities bilaterally likely reflecting atelectasis or scarring.
[2022-01-31] MEDS ORDERED: HYDROCODONE/APAP 5/325 MG TAB ONE (16:25)
[2022-01-31] MEDS ORDERED: CYCLOBENZAPRINE 10 MG TAB ONE (16:25)
--- NOTE | 2022-01-31 16:33 | EDPHYS ---
Physician Documentation [facility] Name: James Wei Age: 71 yrs Sex: Male : 1950 Arrival Date: 01/31/2022 Time: 14:54 Bed 7 Private MD: ED Physician Tino Cain HPI: 01/31 16:29 This 71 yrs old Male presents to ER via Ambulatory with complaints of Fall jl9 Monday, Rib Pain and spasm. Patient reports that he fell off of a ladder about 4ft and landed on his left side. . 16:29 Onset: The symptoms/episode began/occurred 3 day(s) ago. Associated signs and symptoms: jl9 Pertinent negatives: cough, shortness of breath. Modifying factors: The patient symptoms are alleviated by remaining still, the patient symptoms are aggravated by movement. Historical: - Allergies: 15:38 PENICILLINS; ko1 - Home Meds: 15:38 losartan 100 mg Oral tab 1 tab once daily [Active]; metoprolol tartrate 100 mg Oral tab ko1 1 tab once daily [Active]; - PMHx: 15:38 Hypertension; Myocardial infarction; ko1 - Immunization history:: Adult Immunizations up to date, Client reports receiving the 2nd dose of the Covid vaccine. - Social history:: Smoking status: Patient denies any tobacco usage or history of. ROS: 16:30 Constitutional: Negative for fever, chills, and weight loss, Eyes: Negative for injury, jl9 pain, redness, and discharge, ENT: Negative for injury, pain, and discharge, Neck: Negative for injury, pain, and swelling, Cardiovascular: Negative for chest pain, palpitations, and edema, Respiratory: Negative for shortness of breath, cough, wheezing, and pleuritic chest pain, Abdomen/GI: Negative for abdominal pain, nausea, vomiting, diarrhea, and constipation, Back: Negative for injury and pain, MS/Extremity: Negative for injury and deformity, Skin: Negative for injury, rash, and discoloration, Neuro: Negative for headache, weakness, numbness, tingling, and seizure, Psych: Negative for depression, anxiety, suicide ideation, homicidal ideation, and hallucinations, Allergy/Immunology: Negative for hives, rash, and allergies, Endocrine: Negative for neck swelling, polydipsia, polyuria, polyphagia, and marked weight changes, Hematologic/Lymphatic: Negative for swollen nodes, abnormal bleeding, and unusual bruising. Exam: 16:31 Constitutional: This is a well developed, well nourished patient who is awake, alert, jl9 and in no acute distress. Head/Face: Normocephalic, atraumatic. Eyes: Pupils equal round and reactive to light, extra-ocular motions intact. Lids and lashes normal. Conjunctiva and sclera are non-icteric and not injected. Cornea within normal limits. Periorbital areas with no swelling, redness, or edema. ENT: Mucous membranes moist. Neck: Trachea midline, no thyromegaly or masses palpated, and no cervical lymphadenopathy. Supple, full range of motion without nuchal rigidity, or vertebral point tenderness. No Meningismus. 16:31 Cardiovascular: Regular rate and rhythm with a normal S1 and S2. No gallops, murmurs, or rubs. Normal PMI, no JVD. No pulse deficits. Respiratory: Lungs have equal breath sounds bilaterally, clear to auscultation and percussion. No rales, rhonchi or wheezes noted. No increased work of breathing, no retractions or nasal flaring. Abdomen/GI: Soft, non-tender, with normal bowel sounds. No distension or tympany. No guarding or rebound. No evidence of tenderness throughout. Back: No spinal tenderness. No costovertebral tenderness. Full range of motion. Skin: Warm, dry with normal turgor. Normal color with no rashes, no lesions, and no evidence of cellulitis. MS/ Extremity: Pulses equal, no cyanosis. Neurovascular intact. Full, normal range of motion. Neuro: Awake and alert, GCS 15, oriented to person, place, time, and situation. Cranial nerves II-XII grossly intact. Motor strength 5/5 in all extremities. Sensory grossly intact. Cerebellar exam normal. Normal gait. Psych: Awake, alert, with orientation to person, place and time. Behavior, mood, and affect are within normal limits. 16:31 Chest/axilla: Inspection: normal, Palpation: tenderness, that is mild, of the left lateral anterior chest, Axilla: are normal, Lymph nodes: Vital Signs: 15:34 BP 160 / 95; Pulse 92; Resp 24; Temp 97.5; Pulse Ox 96% ; Weight 113.4 kg; Height 6 ft. ko1 2 in. (187.96 cm); Pain 10/10; 15:34 Body Mass Index 32.10 (113.40 kg, 187.96 cm) ko1 MDM: 15:19 Patient medically screened. jl9 16:31 Data reviewed: vital signs, nurses notes, radiologic studies. Counseling: I had a jl9 detailed discussion with the patient and/or guardian regarding: the historical points, exam findings, and any diagnostic results supporting the discharge/admit diagnosis, radiology results, the need for outpatient follow up, to return to the emergency department if symptoms worsen or persist or if there are any questions or concerns that arise at home. Response to treatment: the patient's symptoms have markedly improved after treatment. 01/31 15:25 Order name: XRAY Ribs BILATERAL w/chest; Complete Time: 16:29 jl9 Administered Medications: 16:11 CANCELLED (sadff): Tolna (HYDROcodone-acetaminophen) (7.5 mg-325 mg) 1 tabs PO once jl9 16:17 Drug: HYDROcodone-acetaminophen 5 mg-325 mg 1 tabs Route: PO; mb8 16:44 Follow up: Response: No adverse reaction; Pain is decreased mb8 16:18 Drug: Cyclobenzaprine 10 mg Route: PO; mb8 16:44 Follow up: Response: No adverse reaction; Pain is decreased mb8 Disposition: 17:03 Co-signature as Attending Physician, Tino Cain MD I agree with the assessment and kdr plan of care. Disposition Summary: 01/31/22 16:33 Discharge Ordered Location: Home jl9 Condition: Stable jl9 Diagnosis - Multiple fractures of ribs, left side jl9 Followup: jl9 - With: Private Physician - When: 1 - 2 days - Reason: Recheck today's complaints, Continuance of care, Re-evaluation by your physician Discharge Instructions: - Discharge Summary Sheet jl9 - Rib Fracture, Wfil-li-Upot jl9 Forms: - Medication Reconciliation Form jl9 - Thank You Letter jl9 - Antibiotic Education jl9 - Prescription Opioid Use jl9 Prescriptions: - Cyclobenzaprine 10 mg Oral Tablet - take 1 tablet by ORAL route every 8 hours As needed; 30 tablet; Refills: 0, jl9 Product Selection Permitted - Tramadol 50 mg Oral Tablet - take 1 tablet by ORAL route every 8 hours As needed as needed; 20 tablet; jl9 Refills: 0, Product Selection Permitted Signatures: Dispatcher [employer] EDMS Tino Cain MD MD kdr Linares, John jl9 Deo Farfan RN RN mb8 Jannie Powers RN RN ko1 Corrections: (The following items were deleted from the chart) 16:11 16:11 Tolna (HYDROcodone-acetaminophen) (7.5 mg-325 mg) 1 tabs PO once ordered. jl9 jl9 16:33 16:29 This 71 yrs old Male presents to ER via Ambulatory with complaints of jl9 Fall Monday, Rib Pain. Patient reports that he fell off of a ladder about 4ft and landed on his left side. . jl9
--- NOTE | 2022-01-31 16:33 | ER ---
Nurse's Notes [facility] Name: James Wei Age: 71 yrs Sex: Male : 1950 Arrival Date: 01/31/2022 Time: 14:54 Bed 7 Private MD: Diagnosis: Multiple fractures of ribs, left side Presentation: 01/31 15:34 Chief complaint: Patient states: Monday: Was on a ladder hanging up a banner, fell 4ft, ko1 landed on left side. Yesterday started having shortness of breath and spasms that are unbearable. Coronavirus screen: At this time, the client does not indicate any symptoms associated with coronavirus-19. Ebola Screen: No symptoms or risks identified at this time. Initial Sepsis Screen: Does the patient meet any 2 criteria? No. Patient's initial sepsis screen is negative. Does the patient have a suspected source of infection? No. Patient's initial sepsis screen is negative. Risk Assessment: Do you want to hurt yourself or someone else? Patient reports no desire to harm self or others. Onset of symptoms was January 31, 2022. 15:34 Method Of Arrival: Ambulatory ko1 15:34 Acuity: KIRILL 2 ko1 Triage Assessment: 15:38 General: Appears uncomfortable, Behavior is calm, cooperative, appropriate for age. ko1 Pain: Complains of pain in anterior aspect of left lateral abdomen. Historical: - Allergies: 15:38 PENICILLINS; ko1 - Home Meds: 15:38 losartan 100 mg Oral tab 1 tab once daily [Active]; metoprolol tartrate 100 mg Oral tab ko1 1 tab once daily [Active]; - PMHx: 15:38 Hypertension; Myocardial infarction; ko1 - Immunization history:: Adult Immunizations up to date, Client reports receiving the 2nd dose of the Covid vaccine. - Social history:: Smoking status: Patient denies any tobacco usage or history of. Screenin:13 Abuse screen: Denies threats or abuse. Denies injuries from another. Nutritional mb8 screening: No deficits noted. Tuberculosis screening: No symptoms or risk factors identified. Fall Risk None identified. Assessment: 16:12 General: Appears in no apparent distress. comfortable, Behavior is calm, cooperative, mb8 appropriate for age. Pain: Complains of pain in rib left Pain currently is 8 out of 10 on a pain scale. at worst was 18 out of 10 on a pain scale. Quality of pain is described as spasm. Musculoskeletal: Circulation, motion, and sensation intact. Capillary refill < 3 seconds, Range of motion: intact in all extremities, Reports pain in left rib Pain is 8 out of 10 on a pain scale. Denies SOB. Vital Signs: 15:34 BP 160 / 95; Pulse 92; Resp 24; Temp 97.5; Pulse Ox 96% ; Weight 113.4 kg; Height 6 ft. ko1 2 in. (187.96 cm); Pain 10/10; 15:34 Body Mass Index 32.10 (113.40 kg, 187.96 cm) ko1 ED Course: 14:54 Patient arrived in ED. rg4 15:19 Devang Merritt is PHCP. jl9 15:19 Tino Cain MD is Attending Physician. jl9 15:38 Triage completed. ko1 15:38 Arm band placed on right wrist. Patient placed in an exam room, Patient notified of ko1 wait time. 15:49 Deo Farfan, LILI is Primary Nurse. mb8 16:04 XRAY Ribs BILATERAL w/chest In Process Unspecified. EDMS 16:13 No provider procedures requiring assistance completed. Patient did not have IV access mb8 during this emergency room visit. 16:14 Patient has correct armband on for positive identification. Bed in low position. Call mb8 light in reach. Side rails up X2. Administered Medications: 16:11 CANCELLED (sadff): Cowley (HYDROcodone-acetaminophen) (7.5 mg-325 mg) 1 tabs PO once jl9 16:17 Drug: HYDROcodone-acetaminophen 5 mg-325 mg 1 tabs Route: PO; mb8 16:44 Follow up: Response: No adverse reaction; Pain is decreased mb8 16:18 Drug: Cyclobenzaprine 10 mg Route: PO; mb8 16:44 Follow up: Response: No adverse reaction; Pain is decreased mb8 Medication: 16:13 VIS not applicable for this client. mb8 Outcome: 16:33 Discharge ordered by . jl9 16:43 Discharged to home ambulatory. mb8 16:43 Condition: stable 16:43 Discharge instructions given to patient, Instructed on discharge instructions, follow up and referral plans. no drinking with medication, no driving heavy equipment, medication usage, Demonstrated understanding of instructions, follow-up care, medications, Prescriptions given X 2. 16:44 Patient left the ED. mb8 Signatures: Dispatcher [employer] Sharita Stearns John jl9 Deo Farfan RN RN mb8 Jannie Powers RN RN ko1
[2022-01-31 18:18] VITALS: BP 160/95; TEMP 97.5; O2SAT 96
== END 2022-01-31 16:44 | disposition home or self-care (01) ==
LOC: ER 14:52
DX: S22.42XA Multiple fractures of ribs, left side, initial encounter for closed fracture (principal); I10 Essential (primary) hypertension; I25.2 Old myocardial infarction; Z88.0 Allergy status to penicillin
CPT/HCPCS: 71111; 99283